=== PATIENT | female | born 1945 | race Caucasian/White ===

== ENCOUNTER 2020-06-10 10:59 | Day surgery (SDC) | payer MEDICARE, SELFPAY ==
[2020-06-10] VITALS (10 sets, daily range): BP systolic 156–180; BP diastolic 58–72; PULSE 61–69; RESP 16; TEMP 36.1–36.6; O2SAT 89–98; BMI 22.9
--- NOTE | 2020-06-10 11:27 | EKG12_ITS ---
Test Reason : PRE OP Blood Pressure : / mmHG Vent. Rate : 062 BPM Atrial Rate : 062 BPM P-R Int : 194 ms QRS Dur : 078 ms QT Int : 398 ms P-R-T Axes : 043 -17 060 degrees QTc Int : 403 ms Normal sinus rhythm Septal infarct , age undetermined Abnormal ECG Confirmed by ASHLEY ACUÑA, NAHUN ([id number]), sports editor DOREEN LINDO ([id number]) on 06/14/2020 2:55:25 PM Referred By: Mela Allen Confirmed By:NAHUN RAMIREZ MD
[2020-06-10] MEDS: Phenazopyridine 95 MG Tablet 190 MG PO (11:59)
[2020-06-10] MEDS: Lactated Ringers 1,000 ML 100 ML IV ×2 (12:19→16:51)
--- NOTE | 2020-06-10 13:00 | HYST_PTH ---
PATIENT: ELIE CUNHA LOC: [facility] [place][id number] AGE/SX: 75/F ROOM: RE06/10/[address]: Dr. Mela Allen MD : 1945 BED: DIS: 06/10/2020 SPEC #: [id number] RECD: 06/11/20 07:11 STATUS: MARCO A RELyn #: [id number] SHARIF: 06/10/20 13:[address]: Mela Allen DEPT: SURGICAL PATHOLOGY RECD BY: Feli Corona ENTERED: 06/11/20 08:45 SP TYPE: HYSTERECT OTHR DR: Dr. Poppy Alatorre MD Tissues: Uterus, NOS Procedures: Surgery Specimen Level V HEADER OPERATION: Vaginal hysterectomy, salpingectomy with USLS, A & P repair PRE-OP DIAGNOSIS: Stress incontinence, complete uterovaginal prolapse TISSUE SUBMITTED: Uterus, bilateral fallopian tubes MICROSCOPIC DIAGNOSIS Uterus, bilateral fallopian tubes and ovary, vaginal hysterectomy, bilateral salpingectomy and oophorectomy: Cervix - chronic inflammation. Endometrium - cystic atrophic endometrium. Endometrial polyp - benign endometrial polyp with cystic atrophic changes. Myometrium - intramural leiomyomas with focal calcification (largest measuring 1 cm in greatest dimension). Bilateral fallopian tubes - no pathologic diagnosis. Ovary - no pathologic diagnosis. SJ:rg 06/16/2020 MICROSCOPIC DESCRIPTION Slides are reviewed. GROSS DESCRIPTION Received in fixative is one container labeled with the patient's name and designated uterus, bilateral fallopian tubes. The specimen consists of a hysterectomy specimen consisting of uterus with cervix and detached bilateral fallopian tubes. The uterus with cervix weighs 53 gm and measures 11.5 x 5 x 3 cm. The serosal surface is culp, glistening. The ectocervical mucosa is unremarkable. The external os is pinpoint in contour. The endocervical canal is markedly elongated and measures up to 6.5 cm in length and 0.1 cm in diameter. The triangular endometrial cavity measures 3.5 cm in length and 2 cm in width. A culp-pink polyp is noted in the posterior uterine wall measuring 2 x 1.5 x 0.5 cm. The myometrial wall underneath the polyp is not indurated. The rest of the endometrium is <0.1 cm in thickness. Sections of the uterine wall reveal multiple nodular masses. The largest mass measures 1 cm in diameter. One of the nodules also show focal area of calcification. The uninvolved uterine wall measures up to 1.2 cm in thickness. The fallopian tubes were received in multiple pieces. One of the pieces consist of portion of fallopian tube measuring 4 cm in length and 0.3 cm in diameter. Obvious fimbrial end is not identified. Also present is a portion of fallopian tube with fimbrial end measuring in aggregate 3 x 2 x 0.5 cm. Also present in the container is a piece of tissue consistent with portion of ovary with adherent fimbrial end of fallopian tube measuring 3 x 1 x 1 cm. Sections reveal unremarkable cut surfaces. All [employer] sections are submitted in 11 cassettes as follows: 1 - anterior cervix, 2 - posterior cervix, 3 & 4 - anterior uterine wall, nodular mass, 5 & 6 - posterior uterine wall and entire endometrial polyp, 7 - nodular mass with calcification submitted after decalcification, 8 & 9 - bilateral fallopian tubes, entire submitted, 10 & 11 - ovary, entire submitted. / FERNY:winnie 06/11/20 TC:1 CPT: 73762, 20397
[2020-06-10] MEDS: Cefazolin 2 GM in 0.9% Normal Saline 100 ML IV (13:57)
[2020-06-10] MEDS: Bupiv/Epi 0.5% Mpf 30 ML Vial (16:06)
--- NOTE | 2020-06-15 14:47 | OP.PCM_ITS ---
Problem List (1) Uterovaginal prolapse, incomplete Status: Resolved (2) Female stress incontinence Status: Resolved Report of Operation Date of Procedure: 06/10/20 Pre-Operative Diagnosis: Uterovaginal prolapse and stress incontinence Post-Operative Diagnosis: Uterovaginal prolapse and stress incontinence Surgery/Procedure Performed:: Total Vaginal hysterectomy, bilateral salpingectomy, uterosacral ligament suspension, anterior and posterior colporrhaphy, midurethral sling and cystoscopy Description of Surgical Findings:: : Bilateral ureteral orifices were noted to be patent with pyridium-stained urine. No bladder, urethral or rectal injury. Type of Anesthesia:: General, Local Specimen's removed: uterus, cervix and bilateral fallopian tubes Estimated Blood Loss (mL): 100 ml Description of Procedure: The patient was taken to the operating room where general anesthesia was initiated. The patient was placed in dorsal lithotomy position and prepped and draped in sterile fashion. A surgical timeout occurred. A Samuel catheter was placed in the patient's bladder. A lone star retractor was used for retraction. Total vaginal hysterectomy: A weighted speculum was placed in the patient's vagina. A curved Brisbane was used to retract the anterior vaginal wall and bladder out of the field. The cervix was grasped with two Eliud traction forceps. The cervix was then injected with 0.25% marcaine mixed with epinephrine. Bovie electrocautery was used to perform a circumferential incision on the vagina mucosa down to the body of the cervix. The posterior vaginal epithelium was then dissected off the cerv ix until the peritoneum of the pouch of Jose was reached. This was then grasped and cut with Martinez scissors entering the peritoneal cavity. A right angle retractor was then placed in the posterior cul-de-sac. Attention was then turned to the anterior vaginal wall epithelium which was grasped with pickups and dissected, along with the bladder, off the cervix and the uterus until the peritoneal reflection was visualized. This was then grasped with pickups and incised with Metzenbaum scissors, entering the peritoneal cavity anteriorly. The Samuel bulb was palpated to confirm that the bladder was not perforated. The Brisbane was then used to retract the bladder out of the operative field. A curved Elo clamp was then used to clamp, cut and suture ligate the uterosacral ligament on the patient's left side. This was repeated on the contralateral side. Next, the vessels of the broad ligament including the uterine vessels were clamped, cut and suture ligated bilaterally. Finally, the utero-ovarian ligament was clamped cut and suture ligated; first with a tie on a passer and then with a Elo stitch. The uterus and cervix were passed off the sterile field and sent to pathology. Bilateral salpingectomy: The fallopian tube on the right side was grasped with a Milwaukee clamp and excised using Bovie electrocautery. This was repeated on the left side. The tubes were passed off the sterile field and sent to pathology. Uterosacral ligament suspension: With two Breisky Navratil retractors placed anteriorly and posteriorly in the vagina, the bowel was packed out of the cul-de-sac using a moist Kerlex sponge. A 0-Maxon with an HGU-46 needle on a long needle local driver was passed through the uterosacral ligament on the patient?s right side. This was followed by a 2-0 prolene suture using an SH needle. This was repeated on the contralateral side. The instruments and packing were removed from the vagina. The patient was given 5 mg of Lasix IV and 5 cc of Indigo Hysham. Cystoscopy was then performed while holding tension on the uterosacral ligament suspensions sutures. Bilateral efflux of blue urine was seen from ureteral orifices. The sutures were then bought through the corners of the vaginal cuff. The cuff was closed with interrupted 0-vicryl sutures. The uterosacral ligament sutures were then tied, elevating the vaginal vault. Anterior Repair: The vaginal epithelium overlying the anterior vaginal wall was grasped with two Allis clamps, injected with 0.5% Marcaine with epinephrine and a midline incision was made over the herniation of the anterior vaginal wall. The underlying pubocervical fascia was dissected off the overlying vaginal epithelium until the herniation of the pubocervical fascia was completely exposed. Hemostasis was achieved with electrosurgical cautery. The herniation was repaired in the traditional fashion using imbricating horizontal mattress sutures of 2-O PDS on a CT-1 needle. Once the herniation was completely repaired, the redundant vaginal epithelium was excised and the incision was closed with a running, locking 3-O Vicryl suture. Excellent hemostasis was noted. Posterior repair: A self-retaining retractor was used to retract the labia and vagina for adequate visualization and exposure. The vaginal epithelium overlying the posterior vaginal wall was grasped with two Allis clamps, injected with 0.5% Marcaine with epinephrine and a midline incision was made over the herniation of the posterior vaginal wall. The underlying rectovaginal fascia was dissected off the overlying vaginal epithelium until the herniation of the rectovaginal fascia was completely exposed. Hemostasis was achieved with electrosurgical cautery. The herniation was repaired in the traditional fashion using imbricating horizontal mattress sutures of 2-O PDS on a CT-1 needle. Once the herniation was completely repaired, the redundant vaginal epithelium was excised and the incision was closed with a running, locking 3-O Vicryl suture. Excellent hemostasis was noted. Midurethral sling: The vaginal epithelium overlying the mid-urethra was grasped with two Allis clamps, injected with 0.5% Marcaine with epinephrine and a 1.5 cm midline incision was made over the mid urethra using a 15 blade scalpel. Tunnels were dissected bilaterally to the pubic rami and the Amena Desara trocar was passed through the tunnels on the right side, through the space of Retzius and out the skin at the pubic symphysis. This was repeated on the patient's left side. Cystoscopy was performed and there was no evidence of bladder or urethral injury. The sling was then drawn up through the space of Retzius and out the skin at the pubic symphysis. Tension was adjusted by placing a Metzenbaum scissor tip between the sling and the urethra. Once adequate tension was adjusted, the plastic sheaths were removed. The redundant sling was trimmed at the skin edges and the skin was repaired with Indermil. The vaginal epithelium was repaired with a running locking 3-0 Vicryl suture. Anesthesia was discontinued. All needle, instrument, and sponge counts were correct x 2. The patient was taken to recovery room in stable condition. Grafts/Implants Used: Amena Desara Sling - Complications None - Admit VTE Documentation VTE Present on Admission: Yes VTE Mechan Device Prophylaxis: SCD's VTE Pharm Prophylaxis ordered?: No Reason prophylaxis not ordered:: Treatment Not Indicated
--- NOTE | 2020-06-15 14:54 | PCM.HP.STD ---
Problem List (1) Uterovaginal prolapse, incomplete Status: Resolved (2) Female stress incontinence Status: Resolved History of Present Illness Date of Admission: 06/10/20 The patient is a 75 year old Female with uterovaginal prolapse and stress incontinence here for surgical repair. [] Past Medical History Medical History: Medical History (Last Reviewed 06/10/20 @ 16:[address] Mela Allen MD) HTN (hypertension) I10 Allergies No Known Allergies Allergy (Verified 03/08/15 13:25) Home Medications: Ambulatory Orders Medication Instructions Recorded Aspirin E.C. [Ecotrin] 81 mg PO DAILY@0800 03/08/15 Multivitamins,Therapeutic 1 tablet PO DAILY 03/08/15 [Multivitamin] Biotin 1 mg PO DAILY 06/03/20 Glucos Sul 2Kcl/MSM/Chond/C/Mn 1 ea PO DAILY 06/03/20 [Glucosamine Chondroitin Cap] Losartan Potassium [Cozaar] 12.5 mg PO BID 06/03/20 Vitamin E 400 unit PO DAILY 06/03/20 Smoking Status: Never smoker Tobacco Use: Non-smoker Review of Systems Constitutional: Denies: Chills, Fever, Weight Change HEENT: Denies: Head Aches, Sinus Congestion, Sinus Drainage Cardiovascular: Denies: Chest Pain, Palpitations Respiratory: Denies: Cough, Shortness of breath at rest, Sputum production Gastrointestinal: Denies: Abdominal Pain, Nausea, Vomiting Genitourinary: Denies: Dysuria Musculoskeletal: Denies: Joint Pain, Joint Tenderness Skin: Denies: Rash, Wounds Neurological: Denies: Numbness, Tingling, Focal weakness Psychiatric: Denies: Anxiety, Depression, Homicidal Ideations, Suicidal Ideations Hematologic/ Lymphatic: Denies: Easy Bruising, Easy Bleeding VTE Information - Inpt Only VTE Present on Admission: Yes VTE Mechan Device Prophylaxis: SCD's VTE Pharm Prophylaxis ordered?: No Reason prophylaxis not ordered:: Treatment Not Indicated - Physical Exam Vitals/I&O's: Vital Signs Temp Pulse Resp BP Pulse Ox 97.1 F L 68 16 171/67 H 92 06/10/20 17:30 06/10/20 17:30 06/10/20 17:30 06/10/20 17:30 06/10/20 17:30 Oxygen Flow Rate (L/min) 2 Oxygen Delivery Method Room Air Weight: 62.6 kg Body Mass Index (BMI) 22.9 General: Alert, Oriented x3, Cooperative HEENT: Atraumatic, PERRLA, EOMI, Normocephalic Neck: Supple, No JVD, Negative Carotid Bruits Lungs: Clear to auscultation, Normal air movement Cardiovascular: Regular rate, No murmurs Abdomen: Bowel Sounds Present, Soft, Non Tender Extremities: No edema, Capillary Refill Less than 3 Seconds Skin: No rashes, No breakdown Musculoskeletal: No Tenderness to Palpation of Joints or Extremities Neurological: Cranial nerves II-XII grossly intact Psych/Mental Status: Normal Affect, Appropriate Assessment/Plan All Active Problems (Last Reviewed 06/10/20 @ 16:[address] Mela Allen MD) Uterovaginal prolapse, incomplete (Resolved) Female stress incontinence (Resolved) Proceed with surgical repair as planned.
== END 2020-06-10 18:45 | disposition home or self-care (01) ==
LOC: SDC 11:01 → AC 11:02
PROVIDERS: PCP Internal Medicine; Referring Provider Obstetrics & Gynecology; Visit Provider Obstetrics & Gynecology
PROC: (CPT 58260; principal; 2020-06-10 12:40)
DX: N81.2 Incomplete uterovaginal prolapse (principal); N39.3 Stress incontinence (female) (male); I10 Essential (primary) hypertension; Z79.82 Long term (current) use of aspirin; N84.0 Polyp of corpus uteri; D25.1 Intramural leiomyoma of uterus
CPT/HCPCS: 57250; 57288; 58262; 88307; 93005; J7120; C1771; J2405

== ENCOUNTER 2020-10-02 22:38 | Emergency (ER) | payer MEDICARE, SELFPAY ==
[2020-06-10 12:01] VITALS: BMI 22.9
[2020-10-02 22:39] VITALS: BP 179/145; PULSE 76; RESP 16; TEMP 36.6; O2SAT 97; BMI 23.1
[2020-10-02 22:47] VITALS: BP 186/87
[2020-10-02 22:52] VITALS: BP 186/87; PULSE 54; RESP 21; O2SAT 96; BMI 23.1
--- NOTE | 2020-10-02 22:52 | RAD_ITS ---
INDICATION: Neuro deficit, acute, stroke suspected EXAMINATION/TECHNIQUE: X-RAY - XR Chest 1 View COMPARISON: None. FINDINGS: The lungs are clear. The cardiomediastinal silhouette is unremarkable. No pleural effusion or pneumothorax. Degenerative changes of the thoracic spine and shoulders. RAD/Chest 1 View IMPRESSION: No acute radiographic abnormalities. Electronically Signed: Cecilio Castro MD at 23:30 EDT Tel , Service support ,
--- NOTE | 2020-10-02 22:52 | EKG12_ITS ---
Test Reason : NEURO Blood Pressure : / mmHG Vent. Rate : 060 BPM Atrial Rate : 060 BPM P-R Int : 204 ms QRS Dur : 092 ms QT Int : 376 ms P-R-T Axes : 028 -04 054 degrees QTc Int : 376 ms Normal sinus rhythm Septal infarct , age undetermined Abnormal ECG Confirmed by SHANNON ACUÑA, DINO ([id number]), sound editor DOREEN LINDO ([id number]) on 10/05/2020 8:57:51 AM Referred By: BB Confirmed By:DINO ORTEGA MD
--- NOTE | 2020-10-02 22:52 | CT_ITS ---
HISTORY: Neuro deficit, acute, stroke suspected - LLE weak EXAMINATION: CT Head Stroke Protocol W/O Contrast Injection TECHNIQUE: Multiple axial images were obtained of the brain without intravenous contrast. A radiation dose optimization technique was used for this scan. IV Contrast dosage and agent: None. COMPARISON: None FINDINGS: BRAIN PARENCHYMA: 1.8 x 1.2 x 1.7 cm ovoid intra-axial hemorrhage within the high parasagittal, prefrontal region of right frontal lobe, with mild rim of surrounding edema. Other smaller punctate foci of high attenuation also present and suspicious for hemorrhage: Located within posterior, superior left cerebellar hemisphere, posterior left temporal lobe, left bond radiata periventricular region, high right occipital lobe, high right frontal lobe. Tiny basal ganglia calcifications also noted. No intracranial mass effect or midline shift. There is hypoattenuation of the deep cerebral white matter. Chronic involutional changes are noted. CSF SPACES: Prominent cerebral sulci secondary to involutional changes. No hydrocephalus. Basal cisterns are patent. Intracranial atherosclerotic calcifications. CALVARIUM, SKULL BASE, PARANASAL SINUSES AND MASTOID AIR CELLS: Intact calvarium. No acute findings with imaged paranasal sinuses. Mastoid air cells are well pneumatized. ORBITS: No acute findings. ASPECTS Score for Acute Strokes: Not applicable. CT/STROKE Brain/Head without Cont IMPRESSION: 1. Dominant, small intra-axial hematoma within the high right frontal lobe with several other scattered punctate intracranial hemorrhagic foci. Differential includes hemorrhagic metastases, posttraumatic cerebral contusions, hypercoagulable state and spontaneous hemorrhages, hypertensive hemorrhages. 2. Mild brain atrophy and chronic small vessel white matter disease. Individualized dose optimization techniques were used for this CT. at 2341 Reported and signed by: Jhoan Valenzuela MD N.B. : The above Results were Read Back by Jhoan Valenzuela MD to Jovanni Carter MD, and understanding confirmed on 10/02/2020 23:39:28 (ET). Electronically Signed: Jhoan Valenzuela MD at 23:40 EDT Tel , Service support ,
[2020-10-02 23:04] LABS: Absolute Lymphocyte Count 2.31 X10^3/uL (0.83-4.51); Absolute Neutrophil Count 2.2 X10^3/uL (2.0-7.7); Basophil# 0.02 X10^3/uL; Basophil% 0.4 % (0-1); Hematocrit 40.2 % (37-47); Hemoglobin 12.8 g/dL (12.0-15.0); Lymphocyte # 2.31 X10^3/ul (0.83-4.51); Lymphocyte % 45.9 % (19-41); Mean Corp Hgb Conc 31.8 g/dL (32-36); Mean Corpuscular Volume 94.1 fL (81-99); Mean Platelet Vol. 10.9 fl (6.2-12.0); NRBC Flagged by Analyzer 0 % (0-5); Neutrophil # 2.19 X10^3/uL (2.7-7.7); Neutrophil % 43.5 % (47-70); Platelet Count 207 K/mm3 (150-450); RBC Distribution Width CV 12.1 % (11.6-14.6); RBC Distribution Width SD 41.6 fl (35.1-43.9); Red Blood Count 4.27 M/mm3 (4.2-5.4)
[2020-10-02 23:07] LABS: Prothrombin Time (Protime)PT. 12.7 SECONDS (11.7-14.9)
[2020-10-02 23:08] LABS: Partial Thromboplast Time 33.2 Seconds (24.1-36.2)
[2020-10-02 23:22] VITALS: BP 134/103; PULSE 52; RESP 19; O2SAT 96
--- NOTE | 2020-10-02 23:27 | ED.RN ---
Verbal orders received to discontinue NIH's due to brain mass being found on CT that is likely causing patients symptoms.
[2020-10-02 23:30] LABS: Anion Gap 5 (5-15); BUN 24 mg/dL (7-18); BUN/Creat Ratio 24.5 RATIO (10-20); Calcium,Total 9.2 mg/dL (8.5-10.1); Chloride 102 mmol/L (98-107); Creatinine, Serum 0.98 mg/dL (0.55-1.02); EST Glomerular Filtration Rate 58 mL/min (>60); Est Glom Filt Rate - Afr Amer 71 mL/min (>60); Estimated Creatinine Clearance 43.26 ml/min; Glucose 89 mg/dL (74-106); Sodium Level 136 mmol/L (136-145); Troponin-I HS 7.2 pg/mL (3.0-53.7)
[2020-10-02 23:39] VITALS: BP 214/94; PULSE 60; RESP 16; O2SAT 97
--- NOTE | 2020-10-02 23:40 | ED.VIS.STROK ---
HPI History of Present Illness Chief Complaint: Neuro S/Sx Informant: patient Onset/Context/Timing Onset: Days (4 or 5) Context: - (unk onset) Timing: Continuous Quality and Location: Positive for Left Leg Weakness Current Severity: Moderate Maximum Severity: Moderate Worsened by: n/a Relieved by: n/a Associated Symptoms Associated Symptoms: Negative for Headache, Nausea, Vomiting and Chest Pain Narrative Narrative: Patient noticed that she has been limping on her left lower extremity for the last several days, and it has been weak and a little tingly/numb. She has no weakness or numbness anywhere else. No headaches, problems speaking or understanding others, no vision changes, no chest pain or shortness of breath or dizziness. She noticed tonight that her blood pressure was very high at home which is what prompted her to come to the ER. She takes no anticoagulation but she is on a baby aspirin daily. She states I am pretty healthy and just take medicine for blood pressure. [facility] Medical History HTN (hypertension) Home Medications aspirin 81 mg PO DAILY@0800 03/08/15 [History Last Taken Unknown] multivitamin with folic acid [Thera] 1 tab PO DAILY 03/08/15 [History Last Taken Unknown] biotin 1 mg PO DAILY 06/03/20 [History Last Taken Unknown] glucos sul [id number] 1 ea PO DAILY 06/03/20 [History Last Taken Unknown] losartan 12.5 mg PO BID 06/03/20 [History Last Taken 06/10/20] vitamin E 400 unit PO DAILY 06/03/20 [History Last Taken Unknown] Allergy/AdvReac Type Severity Reaction Status Date / Time No Known Allergies Allergy Verified 10/02/20 22:47 Family History Other Surgical History (Updated 10/02/20 @ 22:48 by Yanira Fuentes) History of hysterectomy Social History Smoking Status: Never smoker ROS ROS ED Constitutional Constitutional ED: Denies chills or fever(s) Eyes Eyes: Denies change in vision or diplopia ENT ENT ED: Denies rhinorrhea or sore throat Cardiovascular Cardiovascular: Denies chest pain or palpitations Respiratory/Chest Respiratory/Chest: Denies cough or dyspnea Gastrointestinal Gastrointestinal: Denies abdominal pain, diarrhea, nausea or vomiting Genitourinary Genitourinary ED: Denies dysuria or hematuria Musculoskeletal Musculoskeletal: Denies back pain or neck pain Integumentary Denies abscess or rash Neurologic Neurologic: Reports as per HPI, paresthesias and weakness; Denies abnormal speech, behavior changes, confusion, dizziness, headache(s) or loss of vision Psychiatric Psychiatric: Denies anxiety or suicidal thoughts EXAM Physical Exam Const Vital Signs: 10/02/20 22:39 10/02/20 22:47 10/02/20 22:52 Temperature 98 F Temperature Source Oral Pulse Rate 76 54 L Respiratory Rate 16 21 H Blood Pressure 179/145 H 186/87 H 186/87 H Blood Pressure Mean 156 120 120 Pulse Ox 97 96 Oxygen Delivery Method Room Air Room Air 10/02/20 23:22 10/02/20 23:39 10/02/20 23:54 Temperature Temperature Source Pulse Rate 52 L 60 56 L Respiratory Rate 19 H 16 18 Blood Pressure 134/103 H 214/94 H 179/73 H Blood Pressure Mean 113 134 108 Pulse Ox 96 97 96 Oxygen Delivery Method Room Air Room Air Room Air 10/03/20 00:06 10/03/20 00:09 10/03/20 00:15 Temperature Temperature Source Pulse Rate 57 L 66 71 Respiratory Rate 18 17 22 H Blood Pressure 168/67 H 168/67 H 140/63 H Blood Pressure Mean 100 100 88 Pulse Ox 96 96 95 Oxygen Delivery Method Room Air Room Air Room Air 10/03/20 00:30 10/03/20 00:51 10/03/20 01:00 Temperature Temperature Source Pulse Rate 81 83 80 Respiratory Rate 23 H 16 16 Blood Pressure 137/53 H 141/48 H 134/55 H Blood Pressure Mean 81 79 81 Pulse Ox 95 96 96 Oxygen Delivery Method Room Air Room Air Room Air 10/03/20 01:15 10/03/20 01:30 Temperature Temperature Source Pulse Rate 79 76 Respiratory Rate 16 16 Blood Pressure 139/65 H 134/78 H Blood Pressure Mean 89 96 Pulse Ox 96 96 Oxygen Delivery Method Room Air Positive well nourished and well developed General Appearance ED: well developed and NAD HEENT Reports moist mucous membranes normocephalic and atraumatic Eyes PERRL and EOMs intact bilaterally Neck full ROM and supple Resp normal respiratory effort and clear to auscultation bilaterally Cardio regular rate, regular rhythm and no murmurs GI non-tender and non-distended Auscultation: normoactive bowel sounds Palpation: soft Back/Spine no CVA tenderness General Back: other FROM Extremity normal to inspection General Extremety ED: Negative for edema, pulses abnormal or tenderness General Extremity: Negative for edema or pulses abnormal Neuro oriented x3 and CN's II-XII intact bilaterally Neuro Narrative: Weak left lower extremity and decreased sensation otherwise normal neuro exam. Sensorium / Orientation: awake and alert Motor Exam: clonus absent Deep Tendon Reflexes: Rt Patellar (L4): 2+, Lt Patellar (L4): 2+, Rt Ankle (S1): 2+ and Lt Ankle (S1): 2+ Deep Tendon Reflexes Back: Rt Patellar (L4): 2+, Lt Patellar (L4): 2+, Rt Ankle (S1): 2+ and Lt Ankle (S1): 2+ Plantar Reflex: Downgoing: bilateral Skin no rashes or lesions noted and no wounds STROKE Vital Signs/Narrative: Vital Signs Temp Pulse Resp BP Pulse Ox 10/03/20 01:30 76 16 134/78 H 96 10/03/20 01:15 79 16 139/65 H 96 10/03/20 01:00 80 16 134/55 H 96 10/03/20 00:51 83 16 141/48 H 96 10/03/20 00:30 81 23 H 137/53 H 95 10/03/20 00:15 71 22 H 140/63 H 95 10/03/20 00:09 66 17 168/67 H 96 10/03/20 00:06 57 L 18 168/67 H 96 10/02/20 23:54 56 L 18 179/73 H 96 10/02/20 23:39 60 16 214/94 H 97 10/02/20 23:22 52 L 19 H 134/103 H 96 10/02/20 22:52 54 L 21 H 186/87 H 96 10/02/20 22:47 186/87 H 10/02/20 22:39 98 F 76 16 179/145 H 97 NIHSS Initial: 1a Level of Consciousness: 0 1b LOC Questions (Score 2 if aphasic/stupor): 0 1c LOC Commands (Only score 1st attempt): 0 2 Best Gaze (If aphasic, use reflexive mvmts.): 0 3 Visual: 0 4 Facial Palsy: 0 5 Motor Arm Right (UN = amputation/fusion): 0 5 Motor Arm Left: 0 6 Motor Leg Right: 0 6 Motor Leg Left: 2 7 Limb ataxia (Only + if out of proportion): 0 8 Sensory (Aphasia/stupor=0 or 1, coma=2): 1 9 Best Language: 0 10 Dysarthria (mute, coma=2, intubated=UN): 0 11 Extinction and Inattention (only scored if +): 0 Total Score: 3 MDM MDM MDM Narrative Medical decision making narrative: CT shows multifocal hemorrhage, all of which are small and have no mass-effect. Had discussion with radiologist. Differential includes hypertensive in addition to multifocal metastases. Patient has no history of cancer. Given the bleeding she will require transfer to a higher level of care. We discussed options, her primary care is in [facility], she prefers to go and stay within the system but stay close, so we tried [facility]. They have an available neuro ICU bed, I discussed with neurosurgery there, and the patient is excepted by critical care medicine Dr. Moore. Per protocol, patient was treated with labetalol and hydralazine, and we got her pressure down to 134/78. She remained clinically stable, and actually very well-appearing. Lab Data Attestation: I reviewed the patient's lab results. Labs: Laboratory Results - last 24 hr 10/02/20 10/02/20 10/02/20 22:43 22:43 22:43 WBC 5.0 RBC 4.27 Hgb 12.8 Hct 40.2 MCV 94.1 MCH 30.0 MCHC 31.8 L RDW Std Deviation 41.6 RDW Coeff of Fabiola 12.1 Plt Count 207 MPV 10.9 Immature Gran % (Auto) 0.200 Neut % (Auto) 43.5 L Lymph % (Auto) 45.9 H [place] % (Auto) 8.0 Eos % (Auto) 2.0 Baso % (Auto) 0.4 Absolute Neuts (auto) 2.2 Absolute Lymphs (auto) 2.31 Nucleated RBC % 0 PT 12.7 INR 1.0 APTT 33.2 Sodium 136 Potassium 4.0 Chloride 102 Carbon Dioxide 29.0 Anion Gap 5 BUN 24 H Creatinine 0.98 Estim Creat Clear Calc 43.26 Est GFR (MDRD) Af Amer 71 Est GFR (MDRD) Non-Af 58 L BUN/Creatinine Ratio 24.5 H Glucose 89 Calcium 9.2 Troponin I High Sens 7.2 Radiography Diagnostic Testing: Radiology Impression Brain CT 10/02/20 22:52 IMPRESSION: 1. Dominant, small intra-axial hematoma within the high right frontal lobe with several other scattered punctate intracranial hemorrhagic foci. Differential includes hemorrhagic metastases, posttraumatic cerebral contusions, hypercoagulable state and spontaneous hemorrhages, hypertensive hemorrhages. 2. Mild brain atrophy and chronic small vessel white matter disease. Individualized dose optimization techniques were used for this CT. at 2341 Reported and signed by: Jhoan Valenzuela MD N.B. : The above Results were Read Back by Jhoan Valenzuela MD to Jovanni Carter MD, and understanding confirmed on 10/02/2020 23:39:28 (ET). Electronically Signed: Jhoan Valenzuela MD at 23:40 EDT Tel , Service support , ADDENDUM: 10/02/20 2348 IMPRESSION: 1. Dominant, small intra-axial hematoma within the high right frontal lobe with several other scattered punctate intracranial hemorrhagic foci. Differential includes hemorrhagic metastases, posttraumatic cerebral contusions, hypercoagulable state and spontaneous hemorrhages, hypertensive hemorrhages. 2. Mild brain atrophy and chronic small vessel white matter disease. Individualized dose optimization techniques were used for this CT. at 2341 Reported and signed by: Jhoan Valenzuela MD N.B. : The above Results were Read Back by Jhoan Valenzuela MD to Jovanni Carter MD, and understanding confirmed on 10/02/2020 23:39:28 (ET). Electronically Signed: Jhoan Valenzuela MD at 23:40 EDT Tel , Service support , Chest X-Ray 10/02/20 22:52 IMPRESSION: No acute radiographic abnormalities. Electronically Signed: Cecilio Castro MD at 23:30 EDT Tel , Service support , EKG Initial EKG: Attestation: I personally reviewed and interpreted this EKG as follows: Interpretation: Sinus Rhythm and No Acute Injury Pattern Comments: Normal EKG except for V1-two Q waves without any ST segment deviations. Prior EKG tracings: available for review Prior: Unchanged Stroke Documentation Questions Stroke Team Activated: No (outside of 24 hrs) Critical Care Time Critical Care Time: Yes Critical care time (excluding procedures): 30-74 minutes (32 minutes), Including time spent:, Discussing w/Patient &/or Family/Dental Patient Coordinator, Discussing w/Consultants, Arranging Admission or Transfer and Performing Direct Patient Care at Bedside Discharge Plan Triage Chief Complaint: Neuro S/Sx ED Provider: Jovanni Carter Dx/Rx/DC Orders Clinical Impression: Acute cerebral hemorrhage Prescriptions: No Action aspirin 81 MG tablet 81 mg PO DAILY@0800 RF: 0 multivitamin with folic acid [Thera] 1 TABLET tablet 1 tab PO DAILY RF: 0 losartan 25 MG tablet 12.5 mg PO BID RF: 0 vitamin E 400 UNIT capsule 400 unit PO DAILY RF: 0 biotin 1 MG tablet 1 mg PO DAILY RF: 0 glucos sul [id number] 1 EACH capsule 1 ea PO DAILY RF: 0 Primary Care Provider: Poppy Alatorre Referrals: Poppy Alatorre MD [Primary Care Provider] - Disposition Disposition: Acute Care Hospital Discharge Location: [facility]
[2020-10-02] MEDS: Labetalol 100 MG/20 ML Vial 20 MG IV (23:46)
[2020-10-02] MEDS: 0.9% Normal Saline 1,000 ML 100 ML IV (23:51)
[2020-10-02 23:54] VITALS: BP 179/73; PULSE 56; RESP 18; O2SAT 96
[2020-10-02] MEDS: hydrALAZINE 20 MG/ML Vial IV (23:56)
[2020-10-03] VITALS (16 sets, daily range): BP systolic 134–168; BP diastolic 48–78; PULSE 57–83; RESP 16–23; O2SAT 95–96
[2020-10-03] MEDS: hydrALAZINE 20 MG/ML Vial IV (00:08)
--- NOTE | 2020-10-03 04:10 | NURSING ---
ACCEPTED TO [facility] GOING TO ROOM 320
== END 2020-10-03 03:52 | disposition short-term general hospital (02) ==
PROVIDERS: Emergency Provider Emergency Medicine; PCP Internal Medicine
DX: I61.9 Nontraumatic intracerebral hemorrhage, unspecified (principal); R90.82 White matter disease, unspecified; I10 Essential (primary) hypertension; F80.2 Mixed receptive-expressive language disorder; Z79.82 Long term (current) use of aspirin
CPT/HCPCS: 70450; 71045; 80048; 84484; 85025; 85610; 85730; 87426; 93005; 96361; 96374; 99283; J7030; A4216

== ENCOUNTER → 2020-10-08 16:03 | Outpatient (CLI) | payer MEDICARE, SELFPAY ==
[2020-10-08 15:11] VITALS: BMI 22.6
[2020-10-08 16:57] LABS: Absolute Lymphocyte Count 1.53 X10^3/uL (0.83-4.51); Absolute Neutrophil Count 2.4 X10^3/uL (2.0-7.7); Basophil# 0.04 X10^3/uL; Basophil% 0.9 % (0-1); Eosinophil# 0.13 X10^3/uL; Eosinophils% 2.9 % (0-5); Hematocrit 40.9 % (37-47); Lymphocyte # 1.53 X10^3/ul (0.83-4.51); Lymphocyte % 34.2 % (19-41); Mean Corp Hgb Conc 31.8 g/dL (32-36); Mean Corpuscular Volume 94.2 fL (81-99); Mean Platelet Vol. 10.7 fl (6.2-12.0); Monocyte# 0.34 X10^3/uL; Monocyte% 7.6 % (0-10); NRBC Flagged by Analyzer 0 % (0-5); Neutrophil # 2.42 X10^3/uL (2.7-7.7); Neutrophil % 54.2 % (47-70); Platelet Count 228 K/mm3 (150-450); RBC Distribution Width CV 11.9 % (11.6-14.6); RBC Distribution Width SD 41.4 fl (35.1-43.9); Red Blood Count 4.34 M/mm3 (4.2-5.4); White Blood Count 4.5 K/mm3 (4.4-11.0)
[2020-10-08 18:03] LABS: AST(SGOT) 18 U/L (15-37); Alanine Aminotransfer ALT/SGPT 21 U/L (13-56); Albumin, Serum 3.7 g/dL (3.2-5.0); Alkaline Phosphatase 103 U/L (45-117); Anion Gap 6 (5-15); BUN 18 mg/dL (7-18); BUN/Creat Ratio 21.6 RATIO (10-20); Calcium,Total 9.2 mg/dL (8.5-10.1); Chloride 103 mmol/L (98-107); Cholesterol 204 mg/dL (200); Creatinine, Serum 0.83 mg/dL (0.55-1.02); EST Glomerular Filtration Rate 70 mL/min (>60); Est Glom Filt Rate - Afr Amer 85 mL/min (>60); Globulin 3.8 g/dL (2.2-4.2); Glucose 132 mg/dL (74-106); High Density Lipoprotein 47 mg/dL; Potassium 4.1 mmol/L (3.5-5.1); Protein, Total 7.5 g/dL (6.4-8.2); Sodium Level 139 mmol/L (136-145); Triglycerides 192 mg/dL; Very Low Density Lipoprotein 38 mg/dL (5-40)
== END ==
PROVIDERS: PCP Internal Medicine; Referring Provider Physician Assistant; Visit Provider Physician Assistant
DX: I10 Essential (primary) hypertension (principal); I61.9 Nontraumatic intracerebral hemorrhage, unspecified; N39.3 Stress incontinence (female) (male)
CPT/HCPCS: 36415; 80053; 80061; 85025

== ENCOUNTER 2020-10-15 13:17 | Emergency (ER) | payer MEDICARE, SELFPAY ==
[2020-10-08 15:11] VITALS: BMI 22.6
[2020-10-15 13:18] VITALS: BP 194/79; PULSE 75; RESP 18; TEMP 36.6; O2SAT 97; BMI 22.6
--- NOTE | 2020-10-15 13:28 | EKG12_ITS ---
Test Reason : HIGHBP Blood Pressure : / mmHG Vent. Rate : 071 BPM Atrial Rate : 071 BPM P-R Int : 168 ms QRS Dur : 086 ms QT Int : 366 ms P-R-T Axes : 061 002 057 degrees QTc Int : 397 ms Normal sinus rhythm Normal ECG Confirmed by SHANNON ACUÑA, DINO ([id number]), movie editor DOREEN LINDO ([id number]) on 10/18/2020 1:13:33 PM Referred By: Enma Puga Confirmed By:DINO ORTEGA MD
[2020-10-15 13:53] VITALS: BP 183/72; PULSE 64; RESP 14; O2SAT 96
--- NOTE | 2020-10-15 14:17 | EDS_ITS ---
HPI History of Present Illness Chief Complaint: Hypertension Informant: patient and family Onset/Context/Timing Onset: Today (Had an elevated blood pressure reading at [facility] and was referred to the emergency department) Context: - (Unknown since she is asymptomatic) Timing: - (Unknown since she is asymptomatic) Quality: Blood pressure 208/80 and second reading was 212/80 Location: Patient is asymptomatic Location: Patient is asymptomatic Worsened by: Asymptomatic not applicable Relieved by: Asymptomatic not applicable Associated Symptoms Associated Symptoms: None Narrative Narrative: Patient is a 75-year-old woman who was seen on October 08 and diagnosed with a hemorrhagic stroke. She was transferred to outside facility. Goal at time of discharge was systolic pressure of 150. Apparently she took an extra dose of her losartan. She is presently on 25 mg of losartan. She was placed on anticonvulsant as prophylactic treatment. She did developed erythema multiforme minor. She was treated with steroids. She is also on a cholesterol med, which I was told is prophylactic since her cholesterol is normal. She denies headache, visual, ocular auditory symptoms. Last evening she reports buzzing in her ears while watching TV. Presently she denies any ringing in her ears. She denies trouble speech or swallowing. Denies cardiac, respiratory, GI or symptoms. She has weakness left lower extremity. Apparently yesterday she may have had some numbness in her left lower extremity. The weakness is not gotten worse and the numbness has resolved. Prior similar symptoms: No Recent Illness/Hospitalization: Yes (Hemorrhagic stroke diagnosed October 08) Tetanus Immunization: 5-10 years [facility] Medical History (Updated 10/15/20 @ 15:02 by Rico Cline) HTN (hypertension) Intracranial hemorrhage Home Medications multivitamin with folic acid [Thera] 1 tab PO DAILY 03/08/15 [History Last Taken Unknown] melatonin 3 mg tablet 3 mg PO QHS PRN #30 tab 10/08/20 [Rx Last Taken Unknown] losartan 25 mg PO BID 10/15/20 [History Last Taken Unknown] Allergy/AdvReac Type Severity Reaction Status Date / Time levetiracetam [From [facility]] Allergy Rash Verified 10/15/20 15:07 atorvastatin AdvReac PT UNSURE Verified 10/15/20 15:07 OF REACTION Family History Other Surgical History History of hysterectomy Social History (Updated 10/15/20 @ 14:[address] Kristopher Payne MD) household members: none Smoking Status: Never smoker alcohol intake: current alcohol intake frequency: holidays/special occasions only substance use type: does not use ROS ROS ED Constitutional Constitutional ED: Reports systems reviewed and no addt'l complaints, except as documented and as per HPI; Denies chills, fatigue or night sweats Eyes Eyes: Denies acute decrease in peripheral vision, blindness, blind spots, change in vision, loss of central vision, photophobia or seeing flashes ENT ENT ED: Reports tinnitus; Denies dysphagia, ear discharge, ear pain, epistaxis, loss taste/smell, odynophagia, otalgia, post nasal drip, rhinorrhea or throat swelling Cardiovascular Cardiovascular: Denies abdominal edema, chest pain, edema, leg edema, paroxysmal nocturnal dyspnea, pounding heartbeat or syncope Respiratory/Chest Respiratory/Chest: Denies chest congestion, chest tightness, dyspnea on exe rtion, inability to speak, paroxysmal nocturnal dyspnea or shortness of breath at rest Gastrointestinal Gastrointestinal: Denies change in bowel habits, dyspepsia, dysphagia or hematochezia Genitourinary Genitourinary ED: Denies burning urination, decreased urination, hematuria or low back pain Musculoskeletal Musculoskeletal: Denies arthralgias, back pain, extremity pain or muscle weakness Integumentary Denies dry skin or wounds Neurologic Neurologic: Reports as per HPI and paresthesias; Denies focal weakness, frequent falls, lack of coordination or radicular pain Psychiatric Psychiatric: Denies change in appetite or depression Endocrine Endocrinology: Denies cold intolerance, fatigue or heat intolerance Hematologic/Lymphatic Hematologic/Lymphatic: Denies easy bruising Allergic/Immunologic Allergic/Immunologic ED: Denies rhinitis, throat swelling or tongue swelling EXAM Physical Exam Const Vital Signs: 10/15/20 13:18 10/15/20 13:53 10/15/20 15:01 Temperature 98 F Temperature Source Temporal Pulse Rate 75 64 Respiratory Rate 18 14 18 Respiratory Effort Respiratory Pattern Blood Pressure 194/79 H 183/72 H Blood Pressure Mean 117 109 Pulse Ox 97 96 Oxygen Delivery Method Room Air Room Air 10/15/20 15:08 10/15/20 16:34 Temperature Temperature Source Pulse Rate Respiratory Rate Respiratory Effort Normal Respiratory Pattern Normal Blood Pressure 154/69 H Blood Pressure Mean 97 Pulse Ox Oxygen Delivery Method Positive well nourished and well developed General Appearance ED: active, cooperative, comfortable, well developed and NAD Orientation / Consciousness: awake, oriented to person, oriented to place and oriented to time Exam Limitations: no limitations HEENT Reports normocephalic, head/scalp atraumatic, hearing grossly normal bilaterally , external ears normal, EAC's normal, TM's clear, TM's normal bilaterally, nasal mucous membranes and turbinates normal, oropharynx normal and gingiva normal normocephalic, normal to inspection and atraumatic Face and Sinus: normal facial exam and face symmetric Nose: external nose normal, nares normal and no nasal discharge Tympanic Membrane ED: Yes TM's clear, TM normal on the right and TM normal on the left Tympanic Membrane: TM normal on the right and TM normal on the left Mouth ED: Yes oral and palatal mucosa normal, Yes lips normal, Yes tongue normal and Yes moist mucous membranes normal Mouth: oral and palatal mucosa normal, lips normal and tongue normal Eyes PERRL and EOMs intact bilaterally Eyes Narrative: There is no nystagmus. Patient's had cataract surgery. Visual Field: other Other Details: There there is no visual field cuts Eyelid: eyelids normal Cornea: cornea normal Neck full ROM, no lymphadenopathy, supple and no JVD General: trachea midline Lymph Lymphatic: no lymphadenopathy noted Resp normal respiratory effort and normal air movement Effort and Inspection: able to speak in complete sentences Auscultation: clear to auscultation bilaterally Cardio regular rate, regular rhythm, S1 normal heart sound, S2 normal heart sound and no murmurs Palpation: normal PMI Rate: regular rate Peripheral Pulses: pulses 2+ throughout GI Inspection: Negative for abdominal aortic bruit Auscultation: normoactive bowel sounds Palpation: soft Percussion: normal to percussion Back/Spine no CVA tenderness, normal ROM and normal to inspection Extremity normal to inspection, full ROM, normal capillary refill, no joint enlargement and no clubbing, cyanosis or edema Neuro oriented x3, CN's II-XII intact bilaterally, moves all extremities, no focal motor deficits, no sensory deficits noted and deep tendon reflexes 2+ bilaterally Sensorium / Orientation: awake, alert, oriented to person, oriented to place, oriented to time and orientation impaired Meningeal Signs: no meningeal signs Cranial Nerves: CN normal except as noted Speech: speech normal Motor Exam: strength 5/5 throughout and muscle tone normal throughout Deep Tendon Reflexes: Rt Triceps (C7): 2+, Lt Triceps (C7): 2+, Rt Biceps (C5, C6): 2+, Lt Biceps (C5, C6): 2+, Rt Brachioradialis (C6): 2+, Lt Brachioradialis (C6): 2+, Rt Patellar (L4): 2+, Lt Patellar (L4): 2+, Rt Ankle (S1): 2+ and Lt Ankle (S1): 2+ Deep Tendon Reflexes Back: Rt Patellar (L4): 2+, Lt Patellar (L4): 2+, Rt Ankle (S1): 2+ and Lt Ankle (S1): 2+ Plantar Reflex: Downgoing: right and Equivocal: left Coordination: [id number] test normal Psych mental status grossly normal, thought process normal, cooperative, affect normal and speech normal Appearance: grossly normal Skin Skin Narrative: Patient has a new rash which is resolving, erythema multiforme or minor due to anticonvulsant medication Hair: normal Nails: normal MDM MDM MDM Narrative Medical decision making narrative: Since patient is asymptomatic has no new neurologic findings and blood pressure remains elevated with multiple measurements we will treat with clonidine. Beta-blockers not used since heart rate is 60. Blood work was obtained to assess for evidence of endorgan injury since onset is unknown. Patient responded to the clonidine. Plan is discharged with prescription for clonidine. Lab Data Attestation: I reviewed the patient's lab results. Lab results narrative: Blood work is unchanged from prior. Labs: Laboratory Results - last 24 hr 10/15/20 10/15/20 14:04 14:04 WBC 6.5 RBC 4.30 Hgb 12.7 Hct 40.1 MCV 93.3 MCH 29.5 MCHC 31.7 L RDW Std Deviation 42.5 RDW Coeff of Fabiola 12.5 Plt Count 217 MPV 10.8 Sodium 137 Potassium 3.7 Chloride 102 Carbon Dioxide 33.0 H Anion Gap 2 L BUN 13 Creatinine 0.84 Estim Creat Clear Calc 50.47 Est GFR (MDRD) Af Amer 84 Est GFR (MDRD) Non-Af 70 BUN/Creatinine Ratio 15.4 Glucose 92 Calcium 9.0 Discharge Plan Triage Chief Complaint: Hypertension ED Provider: Kristopher Payne Dx/Rx/DC Orders Prescriptions: No Action melatonin 3 mg tablet 3 mg PO QHS PRN (Reason: sleep) Qty: 30 RF: 1 multivitamin with folic acid [Thera] 1 TABLET tablet 1 tab PO DAILY RF: 0 losartan 25 mg tablet 25 mg PO BID RF: 0 Primary Care Provider: Samuel Moreland
[2020-10-15 14:20] LABS: Hematocrit 40.1 % (37-47); Hemoglobin 12.7 g/dL (12.0-15.0); Mean Corp Hgb Conc 31.7 g/dL (32-36); Mean Corpuscular Hgb 29.5 pg (27.0-32.0); Mean Corpuscular Volume 93.3 fL (81-99); Mean Platelet Vol. 10.8 fl (6.2-12.0); Platelet Count 217 K/mm3 (150-450); RBC Distribution Width CV 12.5 % (11.6-14.6); RBC Distribution Width SD 42.5 fl (35.1-43.9); White Blood Count 6.5 K/mm3 (4.4-11.0)
[2020-10-15 14:28] LABS: Anion Gap 2 (5-15); BUN 13 mg/dL (7-18); BUN/Creat Ratio 15.4 RATIO (10-20); Chloride 102 mmol/L (98-107); Creatinine, Serum 0.84 mg/dL (0.55-1.02); EST Glomerular Filtration Rate 70 mL/min (>60); Est Glom Filt Rate - Afr Amer 84 mL/min (>60); Estimated Creatinine Clearance 50.47 ml/min; Glucose 92 mg/dL (74-106); Potassium 3.7 mmol/L (3.5-5.1); Sodium Level 137 mmol/L (136-145)
[2020-10-15] MEDS: cloNIDine HCl 0.2 MG Tablet PO (15:00)
[2020-10-15 15:01] VITALS: RESP 18
[2020-10-15 16:34] VITALS: BP 154/69
[2020-10-15 17:54] VITALS: BP 112/73; PULSE 61; RESP 16; O2SAT 95
== END 2020-10-15 17:55 | disposition home or self-care (01) ==
PROVIDERS: Emergency Provider Emergency Medicine; PCP Internal Medicine
DX: I10 Essential (primary) hypertension (principal); Z79.899 Other long term (current) drug therapy
CPT/HCPCS: 80048; 85027; 93005; 99285

== ENCOUNTER 2020-11-06 02:18 | Emergency (ER) | payer MEDICARE, SELFPAY ==
[2020-11-04 12:51] VITALS: BMI 23.5
[2020-11-06 02:19] VITALS: BP 233/82; PULSE 83; RESP 16; TEMP 35.7; O2SAT 99; BMI 23.8
--- NOTE | 2020-11-06 03:28 | CT_ITS ---
We are attempting to reach an attending provider to discuss findings. An addendum with communication details will be sent when the communication is complete. STUDY: CT BRAIN WITHOUT CONTRAST REASON FOR EXAM: Female, 75 years old. Stroke RADIATION DOSAGE (If Supplied By Facility): CTDIvol = ( 44.99 ) mGy, DLP = ( 812.98 ) mGycm TECHNIQUE: Transaxial CT imaging of the brain was performed without administration of intravenous contrast material. Individualized dose optimization techniques were used for this CT. COMPARISON: October 02, 2020 CT scan head FINDINGS: Normal soft tissue structures. Normal calvarium. There is mild cerebral atrophy with widening of the extra-axial spaces and ventricular dilatation. There are areas of decreased attenuation within the white matter tracts of the supratentorial brain, consistent with microvascular disease changes. There are small punctate calcifications of the basal ganglia which are seen in the aging brain as a normal variant. Normal brainstem. There is mild cerebellar atrophy. There is a chronic-appearing hyperdensity calcification within the periphery of the temporal parietal lobe stable since the prior study. This may be associated prior injury infection potential prior history of vascular malformation. The left frontal punctate hyperdensity is no longer visualized. The focal rounded hemorrhage that was seen on the prior study October 02, 2020 now demonstrates a small focus of low attenuation with a minimal amount of residual hyperdensity. There is a small focus of hemorrhage within the posterior aspect of the left parietal lobe that is new since the prior study suggesting a new small hemorrhage without significant edema. There are no findings of an acute ischemic infarction. Normal visualized paranasal sinuses. CT/Brain/Head without Contrast IMPRESSION: Small focus of evolving hemorrhage within the right hemisphere ovoid in shape but there is trace focus of petechial hemorrhage remaining. Newly visualized hyperdensity within the left posterior parietal lobe. This also accompanies a small focal hyperdensity within the left parietotemporal temporal lobe junction. Pattern of evolving right frontal hemorrhage when compared to prior study October 02, 2020 with residual petechial hemorrhage, resolved left frontal punctate hemorrhage, now with new left posterior parietal hemorrhage persisting calcification or hemorrhage in the left temporoparietal region. This raises concern for the possibility of ongoing multifocal hemorrhagic phenomenon which could include small hemorrhagic masses possible vascular malformations or potentially amyloid or hemorrhagic emboli. Electronically Signed: Lesly Gunter MD at 4:47 EDT Tel , Service support ,
--- NOTE | 2020-11-06 03:28 | EKG12_ITS ---
Test Reason : HYPERTENSION Blood Pressure : / mmHG Vent. Rate : 053 BPM Atrial Rate : 053 BPM P-R Int : 236 ms QRS Dur : 086 ms QT Int : 410 ms P-R-T Axes : 059 -11 053 degrees QTc Int : 384 ms Sinus bradycardia with 1st degree A-V block Cannot rule out Inferior infarct , age undetermined Septal HI, age undetermined Abnormal ECG Confirmed by ASHLEY ACUÑA, NAHUN ([id number]), online editor DOREEN LINDO ([id number]) on 11/11/2020 1:03:39 PM Referred By: NICOLA Confirmed By:NAHUN RAMIREZ MD
[2020-11-06 03:35] LABS: Absolute Lymphocyte Count 1.42 X10^3/uL (0.83-4.51); Absolute Neutrophil Count 1.4 X10^3/uL (2.0-7.7); Basophil# 0.02 X10^3/uL; Basophil% 0.6 % (0-1); Eosinophil# 0.09 X10^3/uL; Eosinophils% 2.7 % (0-5); Hematocrit 39.2 % (37-47); Hemoglobin 12.4 g/dL (12.0-15.0); Lymphocyte # 1.42 X10^3/ul (0.83-4.51); Lymphocyte % 42.3 % (19-41); Mean Corp Hgb Conc 31.6 g/dL (32-36); Mean Corpuscular Hgb 29.9 pg (27.0-32.0); Mean Corpuscular Volume 94.5 fL (81-99); Mean Platelet Vol. 11.3 fl (6.2-12.0); Monocyte# 0.39 X10^3/uL; Monocyte% 11.6 % (0-10); NRBC Flagged by Analyzer 0 % (0-5); Neutrophil # 1.44 X10^3/uL (2.7-7.7); Neutrophil % 42.8 % (47-70); Platelet Count 176 K/mm3 (150-450); RBC Distribution Width CV 13.2 % (11.6-14.6); RBC Distribution Width SD 46.2 fl (35.1-43.9); Red Blood Count 4.15 M/mm3 (4.2-5.4); White Blood Count 3.4 K/mm3 (4.4-11.0)
[2020-11-06 03:59] LABS: AST(SGOT) 30 U/L (15-37); Alanine Aminotransfer ALT/SGPT 24 U/L (13-56); Albumin, Serum 3.6 g/dL (3.2-5.0); Alkaline Phosphatase 96 U/L (45-117); Anion Gap 5 (5-15); BUN 11 mg/dL (7-18); BUN/Creat Ratio 14.3 RATIO (10-20); Calcium,Total 8.3 mg/dL (8.5-10.1); Chloride 100 mmol/L (98-107); Creatinine, Serum 0.77 mg/dL (0.55-1.02); EST Glomerular Filtration Rate 77 mL/min (>60); Est Glom Filt Rate - Afr Amer 94 mL/min (>60); Estimated Creatinine Clearance 42.39 ml/min; Globulin 3.6 g/dL (2.2-4.2); Glucose 92 mg/dL (74-106); Potassium 4.5 mmol/L (3.5-5.1); Protein, Total 7.2 g/dL (6.4-8.2); Sodium Level 133 mmol/L (136-145); Troponin-I HS 6.6 pg/mL (3.0-53.7)
--- NOTE | 2020-11-06 04:36 | EDS_ITS ---
HPI History of Present Illness Chief Complaint: Hypertension Informant: patient Onset/Context/Timing Onset: Today Context: Gradual Onset Timing: Continuous Worsened by: Nothing Relieved by: Blood pressure medication Narrative Narrative: Patient presents with elevated blood pressure that began tonight. Patient checked her blood pressure at home and it was over 200 systolic. Patient states she took one of her blood pressure medications at home which did not help initially. Patient states she took a second 1 and when she got here her blood pressure starting to improve. Patient states that she has had an intraparenchymal bleed from elevated blood pressure in the past. Patient is concerned about this. [facility] Medical History HTN (hypertension) Intracranial hemorrhage Home Medications multivitamin with folic acid [Thera] 1 tab PO DAILY 03/08/15 [History Last Taken Unknown] melatonin 3 mg tablet 3 mg PO QHS PRN #30 tab 10/08/20 [Rx Last Taken Unknown] losartan 25 mg PO BID 10/15/20 [History Last Taken Unknown] biotin 1 mg capsule 1 mg PO DAILY 11/02/20 [History Last Taken Unknown] clonidine 0.2 mg/24 hr weekly transdermal patch 1 patch TRANSDERMAL QWEEK #4 ea 11/04/20 [Rx Last Taken Unknown] Allergy/AdvReac Type Severity Reaction Status Date / Time levetiracetam [From [facility]] Allergy Rash Verified 11/06/20 02:21 atorvastatin AdvReac PT UNSURE Verified 11/06/20 02:21 OF REACTION Family History Other Surgical History History of hysterectomy Social History household members: none Smoking Status: Never smoker Electronic Cigarette Use: not used second hand exposure: No alcohol intake: never substance use type: does not use ROS ROS ED Constitutional Constitutional ED: Denies chills or fever(s) Eyes Eyes: Denies blurry vision or change in vision ENT ENT ED: Denies rhinorrhea or sore throat Cardiovascular Cardiovascular: Denies chest pain or palpitations Respiratory/Chest Respiratory/Chest: Denies cough or dyspnea Gastrointestinal Gastrointestinal: Denies nausea or vomiting Genitourinary Genitourinary ED: Denies dysuria or hematuria Musculoskeletal Musculoskeletal: Denies back pain or neck pain Integumentary Denies abscess or rash Neurologic Neurologic: Denies headache(s) or weakness Allergic/Immunologic Allergic/Immunologic ED: Denies mouth swelling or urticaria EXAM Physical Exam Const Vital Signs: 11/06/20 02:19 11/06/20 02:22 11/06/20 06:28 Temperature 96.2 F L Temperature Source Temporal Pulse Rate 83 60 Respiratory Rate 16 14 Respiratory Effort Normal Non-Labored Respiratory Pattern Normal Blood Pressure 233/82 H Blood Pressure Mean 132 Pulse Ox 99 96 Oxygen Delivery Method Room Air Room Air 11/06/20 06:56 Temperature Temperature Source Pulse Rate 61 Respiratory Rate 14 Respiratory Effort Respiratory Pattern Blood Pressure 200/88 H Blood Pressure Mean 125 Pulse Ox 96 Oxygen Delivery Method Room Air Positive well nourished and well developed General Appearance ED: well developed HEENT Reports moist mucous membranes Neck supple and no JVD Resp normal respiratory effort and clear to auscultation bilaterally Cardio regular rate, regular rhythm and no murmurs GI normal to inspection, nondistended, normoactive bowel sounds and non-tender Palpation: soft Extremity normal to inspection General Extremety ED: Negative for edema or tenderness General Extremity: Negative for edema Neuro oriented x3, CN's II-XII intact bilaterally and no sensory deficits noted Sensorium / Orientation: alert Motor Exam: strength 5/5 throughout Psych mental status grossly normal Skin no rashes or lesions noted MDM MDM MDM Narrative Medical decision making narrative: Patient took her blood pressure medicine prior to arrival. On my initial evaluation, patient's blood pressure was 177/90. This improved during her emergency department stay to 166/80. EKG was obtained. On my interpretation, it showed a sinus bradycardia with a first- degree AV block with a rate of 53. There are no acute ST or T wave changes. QRS interval and QTc intervals were normal. [place] was normal. CBC and comprehensive metabolic profile were obtained and were within normal limits. CT scan of the brain was obtained. There is a small focus of resolving hemorrhage within the right hemisphere and there is trace focus of petechial hemorrhage remaining. There is a new hypodensity in the left posterior parietal lobe. There is a small focal hyperdensity within the left parietotemporal lobe junction. This was interpreted by the radiologist and reviewed by myself. Patient was advised of her findings. Patient did want want to be transferred initially but is agreeable to that. Patient was seen at [facility] recently for prior intraparenchymal hemorrhage. Case was discussed with the transfer line. They will try to make arrangements for transfer. After discussing this with the patient, her blood pressure increased to 200/88. Patient was given a dose of clonidine as well as her morning losartan tablet. Patient was accepted to the service of Dr. Andrew. Patient understood and was agreeable with the plan. All questions were answered. Lab Data Attestation: I reviewed the patient's lab results. Labs: Laboratory Results - last 24 hr 11/06/20 11/06/20 02:33 02:33 WBC 3.4 L RBC 4.15 L Hgb 12.4 Hct 39.2 MCV 94.5 MCH 29.9 MCHC 31.6 L RDW Std Deviation 46.2 H RDW Coeff of Fabiola 13.2 Plt Count 176 MPV 11.3 Immature Gran % (Auto) 0.000 Neut % (Auto) 42.8 L Lymph % (Auto) 42.3 H [place] % (Auto) 11.6 H Eos % (Auto) 2.7 Baso % (Auto) 0.6 Absolute Neuts (auto) 1.4 L Absolute Lymphs (auto) 1.42 Nucleated RBC % 0 Sodium 133 L Potassium 4.5 Chloride 100 Carbon Dioxide 28.0 Anion Gap 5 BUN 11 Creatinine 0.77 Estim Creat Clear Calc 42.39 Est GFR (MDRD) Af Amer 94 Est GFR (MDRD) Non-Af 77 BUN/Creatinine Ratio 14.3 Glucose 92 Calcium 8.3 L Total Bilirubin 0.40 AST 30 ALT 24 Alkaline Phosphatase 96 Troponin I High Sens 6.6 Total Protein 7.2 Albumin 3.6 Globulin 3.6 Albumin/Globulin Ratio 1.0 Radiography Diagnostic Testing: Radiology Impression Brain CT 11/06/20 03:28 IMPRESSION: Small focus of evolving hemorrhage within the right hemisphere ovoid in shape but there is trace focus of petechial hemorrhage remaining. Newly visualized hyperdensity within the left posterior parietal lobe. This also accompanies a small focal hyperdensity within the left parietotemporal temporal lobe junction. Pattern of evolving right frontal hemorrhage when compared to prior study October 02, 2020 with residual petechial hemorrhage, resolved left frontal punctate hemorrhage, now with new left posterior parietal hemorrhage persisting calcification or hemorrhage in the left temporoparietal region. This raises concern for the possibility of ongoing multifocal hemorrhagic phenomenon which could include small hemorrhagic masses possible vascular malformations or potentially amyloid or hemorrhagic emboli. Electronically Signed: Lesly Gunter MD at 4:47 EDT Tel , Service support , ADDENDUM: 11/06/20 0520 IMPRESSION: Small focus of evolving hemorrhage within the right hemisphere ovoid in shape but there is trace focus of petechial hemorrhage remaining. Newly visualized hyperdensity within the left posterior parietal lobe. This also accompanies a small focal hyperdensity within the left parietotemporal temporal lobe junction. Pattern of evolving right frontal hemorrhage when compared to prior study October 02, 2020 with residual petechial hemorrhage, resolved left frontal punctate hemorrhage, now with new left posterior parietal hemorrhage persisting calcification or hemorrhage in the left temporoparietal region. This raises concern for the possibility of ongoing multifocal hemorrhagic phenomenon which could include small hemorrhagic masses possible vascular malformations or potentially amyloid or hemorrhagic emboli. N.B. : The above Results were Read Back by Lesly Gunter MD to Yair Bowers DO, and understanding confirmed on 11/06/2020 05:13:53 (ET). Electronically Signed: Lesly Gunter MD at 4:47 EDT Tel , Service support , EKG Initial EKG: Attestation: I personally reviewed and interpreted this EKG as follows: Interpretation: No Acute Injury Pattern and Sinus Bradycardia (With first- degree AV block with a rate of 53) Prior EKG tracings: available for review Prior: Changed (Compared to previous EKG dated 10/15/2020, the first-degree AV block is new, otherwise there are no acute changes.) Discharge Plan Triage Chief Complaint: Hypertension ED Provider: Yair Bowers Dx/Rx/DC Orders Clinical Impression: Acute cerebral hemorrhage, Accelerated hypertension Prescriptions: No Action biotin 1 mg capsule 1 mg PO DAILY RF: 0 melatonin 3 mg tablet 3 mg PO QHS PRN (Reason: sleep) Qty: 30 RF: 1 clonidine 0.2 mg/24 hr patch weekly 1 patch transdermal QWEEK Qty: 4 RF: 1 multivitamin with folic acid [Thera] 1 TABLET tablet 1 tab PO DAILY RF: 0 losartan 25 mg tablet 25 mg PO BID RF: 0 Hold Instructions: Pxt not tolerating Primary Care Provider: Samuel Moreland Referrals: Samuel Moreland MD [Primary Care Provider] - Disposition Disposition: Acute Care Hospital Discharge Location: [facility]
[2020-11-06 06:28] VITALS: PULSE 60; RESP 14; O2SAT 96
[2020-11-06 06:56] VITALS: BP 200/88; PULSE 61; RESP 14; O2SAT 96
[2020-11-06] MEDS: Losartan Potassium 25 MG Tablet PO (06:57)
[2020-11-06] MEDS: cloNIDine HCl 0.1 MG Tablet PO (08:07)
[2020-11-06 10:17] VITALS: BP 171/55; PULSE 54; RESP 18; O2SAT 96
[2020-11-06 13:26] VITALS: BP 151/82; PULSE 51; RESP 19; O2SAT 97
--- NOTE | 2020-11-06 13:27 | ED.RN ---
pt expressed interest in advance directives. case management in room assisting anel with paperwork. is aware. awaiting new orders from dr. chayo cunningham, rn
--- NOTE | 2020-11-06 13:27 | CM.ED ---
Addendum entered by Sandra Davis 11/06/20 14:30: DMITRI met with patient again. She indicated she has advanced directives and stated they are on file here. Patient spoke to RN who indicated patient had inquired about change in arrest status and not advanced directives. SW met with patient and advised advanced directives are not on file. Patient said I had a health analytics consultant draw them up. SW explained that next time patient comes to the ED or medical appt to bring them so her wishes could be followed via advanced directives. Patient said that maybe the AD are on file at [place]. Patient declined information on advanced directives from [facility]. No further SW needs at this time. 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 She reports that she wants no lifesaving efforts if her medical state decompensates. Patient said that she has living will and HCPOA on file (SW reviewed legal and nothing is in the legal folder). Patient said I am a Jewish and ok with going. Patient reports she understand the DNRCC and has no issues or questions. updated. Sandra MCINTYRE
[2020-11-06 14:02] VITALS: BP 151/82; PULSE 57; RESP 16; O2SAT 95
--- NOTE | 2020-11-06 14:03 | ED.RN ---
DNRCC-Arrest signed by patient and copy sent home with patient and placed in chart. pt was infromed that she is always welcome back if her symptoms get worse or if she has any other concerns. chayo cunningham rn [id number]
== END 2020-11-06 14:05 | disposition home or self-care (01) ==
PROVIDERS: Emergency Provider Emergency Medicine; PCP Internal Medicine
DX: I10 Essential (primary) hypertension (principal); I61.9 Nontraumatic intracerebral hemorrhage, unspecified; Z66 Do not resuscitate; I44.0 Atrioventricular block, first degree; Z90.710 Acquired absence of both cervix and uterus; Z79.899 Other long term (current) drug therapy
CPT/HCPCS: 70450; 80053; 84484; 85025; 93005; 99283

== ENCOUNTER → 2020-11-19 12:29 | Outpatient (CLI) | payer MEDICARE, SELFPAY ==
[2020-11-18 08:59] VITALS: BMI 23.8
[2020-11-19 13:08] LABS: Erythrocyte Sedimentation Rate 17 mm/hr (0-30)
[2020-11-19 13:35] LABS: CRP < 2.90 mg/L (0.0-3.0); Thyroid Stim Hormone (TSH) 1.84 uIU/mL (0.358-3.74)
[2020-11-21 08:00] LABS: ANTINUCLEAR ANTIBODIES DIRECT Negative (Negative)
== END ==
PROVIDERS: PCP Internal Medicine; Visit Provider Psychiatry & Neurology Neurology
DX: I10 Essential (primary) hypertension (principal); Z86.79 Personal history of other diseases of the circulatory system
CPT/HCPCS: 36415; 84443; 85652; 86038; 86140; 86225; 86235

== ENCOUNTER 2020-12-09 09:00 | Outpatient (RCR) | payer MEDICARE, SELFPAY ==
[2020-10-08 15:11] VITALS: BMI 22.6
--- NOTE | 2020-10-21 08:29 | HP.PTEVAL ---
Patient's Visit Information ELIE CUNHA is a 75 year old F referred to Physical Therapy by AGUILA Cruz with a diagnosis of CVA. Date of Evaluation: 10/21/20 Physical Therapist: Elise Ewing DPT - Visit Plan Frequency: 2x /Week Duration: 4 Weeks Plan: Focus on LE and core strength/stabilization- proprioception. HEP Given IE: Kitchen Sink Exercises-HR/TR, marching, standing hip abd, weight shift, mini squat - Subjective Pt reports that she had a stroke approx 2 weeks ago due to HTN. She reports that she thought she had left leg weakness throughout the day- she had friends over and they were worried about her so they took her to the ED. They transferred her to [place] due to the brain bleed but did not have to have surgery. She has had all the tests but they found nothing other than the HTN and put her on a patch. In [place] they gave her an experimental medication and she ended up with a rash and she was horrible for 2 days. 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 No other medical issues. No pain but just doesn't feel normal. Does not use an AD. No N/T. No fall or tripping episodes. Sleep: does not sleep well normally PMHx/Meds: see chart. - Objective Posture: FH, RS- can correct but does not maintain. Gait: decreased stance on the left LE with decreased extension in stance phase- poor jared/toe- No AD. Stairs: asc/desc 8 recip with 2 HR and poor control. HR/TR: able with weight shift to the right. SLS: weight shift but unable to SLS. Sensation: diminished to light touch on the right LE. Reflex: WFL patellar. ROM: WFL in all planes. Strength: Core: fair minus, LE: Left: Hip: 4+/5, Knee: 5/5, Ankle: 5/5 Right: Hip: 4/5, Knee: 4/5, Ankle: 4/5. Flex: HS: moderate. Balance: see FGA. 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 saw sharpener 30 sec: 12 in 15 seconds- wanted to stop was able to complete 23 in 30 seconds with UE A- TU.21 - Balance Scores Functional Gait Assessment Score: 17 % Disability: 43.3400 - Goals Goal 1:: Patient will be I with HEP and progression Goal Time Frame: 4-6 Weeks Goal 2:: 24.9Patient will improve her FGA to 24.9 Goal Time Frame: 4-6 Weeks Goal 3:: Patient will perform sit to stands for the entire 30 seconds Goal Time Frame: 4-6 Weeks Goal 4:: Patient will ambulate >300 feet with a normalized gait pattern Goal Time Frame: 4-6 Weeks - Rehabilitation Potential Physical Therapy Diagnosis: Patient presents with hypomobility- she has decreased strength, proprioception and muscular endurance leading to poor posture and decreased ability to perform ADL's Rehabilitation Potential: Good - Anticipated Interventions Patient/Client Instruction: Educate patient on: Benefits of Fitness Program Therapeutic Exercise to Include: Strength training, Endurance training, Balance training, Body mechanics, Postural training, Flexibilty training, Gait and locomotor training, Neuromotor development, Dynamic Lumbar Stabilization, Scapular Strength/Stabilization For the Purpose of:: To improve muscle performance and motor function Functional Training to Include: ADL Training, Gait training Thank you for the opportunity to evaluate your patient. For Medicare and Medicare HMO plans, please review the plan of care and approve it. It will need to be FAXED BACK to us at [phone] for Medicare purposes. For Medicare only, by signing this I certify the plan of care. Please let me know if there are questions or concerns regarding this plan of care. Physician Signature: Date:
--- NOTE | 2020-12-09 09:32 | HP.PTDCSUM ---
It has been my pleasure to treat ELIE CUNHA referred by AGUILA Cruz, with the diagnosis of CVA for a total of 6 visit(s). Discharge Date: 12/09/20 Please see the following information for a summary of their discharge status. Subjective: Pt. reports overall being ~98% better. She reports no longer having trouble with any thing, but does have some increased fatigue. Pt. reports being compliant with her HEP. Pt. reports no pain and is doing much better. Objective/Function: She does having some mild numbness in L leg, but is not effecting her. 30sec sit to stand test 20 reps. 5/5 throughout BLEs. Pt. is able to ambulate with normal gait pattern without issues. Pt. ambulated 1000' today without issues. FGA . Goal 1:: Patient will be I with HEP and progression Goal Progress: Goal Met Goal 2:: 24.9Patient will improve her FGA to 24.9 Goal Progress: Goal Met Goal 3:: Patient will perform sit to stands for the entire 30 seconds Goal Progress: Goal Met Goal 4:: Patient will ambulate >300 feet with a normalized gait pattern Goal Progress: Goal Met Plan: PT. to be DC from PT at this point Discharge Comments: PT. ws treated with dynamic balance and strengthening exercises. She tested very well and reports being 98% better overall. Pt. is independent with her HEP and will be DC from PT at this point in time. If there are questions or concerns regarding this patient's physical therapy, please feel free to call me at [phone]. Thank you for the referral of this patient. Sincerely, Payam Hope, DPT Balance/Gait/Functional tests - Balance/Special Test Scores Functional Gait Assessment Score: 17 % Disability: 43.3400 Lower Extremity Functional Score: 73
== END 2020-12-09 19:00 | disposition home or self-care (01) ==
LOC: PT 09:00
PROVIDERS: PCP Internal Medicine; Referring Provider Physician Assistant; Visit Provider Physician Assistant
DX: I61.9 Nontraumatic intracerebral hemorrhage, unspecified (principal); R29.898 Other symptoms and signs involving the musculoskeletal system
CPT/HCPCS: 97110; 97161; 97164

== ENCOUNTER 2021-04-14 10:03 | Outpatient (CLI) | payer MEDICARE, SELFPAY ==
[2021-04-14 12:45] LABS: Anion Gap 7 (5-15); BUN 13 mg/dL (7-18); BUN/Creat Ratio 15.3 RATIO (10-20); Calcium,Total 9.2 mg/dL (8.5-10.1); Chloride 103 mmol/L (98-107); Creatinine, Serum 0.85 mg/dL (0.55-1.02); EST Glomerular Filtration Rate 69 mL/min (>60); Est Glom Filt Rate - Afr Amer 83 mL/min (>60); Glucose 82 mg/dL (74-106); Potassium 4.6 mmol/L (3.5-5.1); Sodium Level 139 mmol/L (136-145)
== END 2021-04-14 23:59 | disposition short-term general hospital (02) ==
PROVIDERS: PCP Internal Medicine; Referring Provider Internal Medicine; Visit Provider Internal Medicine
DX: I10 Essential (primary) hypertension (principal)
CPT/HCPCS: 36415; 80048

== ENCOUNTER → 2021-12-15 | Outpatient (CLI) | payer MEDICARE, SELFPAY ==
[2021-12-15 16:41] LABS: Absolute Lymphocyte Count 1.34 X10^3/uL (0.83-4.51); Absolute Neutrophil Count 3.3 X10^3/uL (2.0-7.7); Basophil# 0.04 X10^3/uL; Basophil% 0.8 % (0-1); Eosinophil# 0.04 X10^3/uL; Eosinophils% 0.8 % (0-5); Hematocrit 38.6 % (37-47); Hemoglobin 12.6 g/dL (12.0-15.0); Lymphocyte # 1.34 X10^3/ul (0.83-4.51); Mean Corp Hgb Conc 32.6 g/dL (32-36); Mean Corpuscular Hgb 31.1 pg (27.0-32.0); Mean Corpuscular Volume 95.3 fL (81-99); Mean Platelet Vol. 10.8 fl (6.2-12.0); Monocyte% 7.8 % (0-10); NRBC Flagged by Analyzer 0 % (0-5); Neutrophil # 3.32 X10^3/uL (2.7-7.7); Neutrophil % 64.2 % (47-70); Platelet Count 197 K/mm3 (150-450); RBC Distribution Width CV 12.6 % (11.6-14.6); RBC Distribution Width SD 44.2 fl (35.1-43.9); Red Blood Count 4.05 M/mm3 (4.2-5.4); White Blood Count 5.2 K/mm3 (4.4-11.0)
[2021-12-15 16:55] LABS: ALB/GLOB Ratio 1.1 RATIO (0.9-2.4); AST(SGOT) 17 U/L (15-37); Alanine Aminotransfer ALT/SGPT 16 U/L (13-56); Albumin, Serum 3.5 g/dL (3.2-5.0); Alkaline Phosphatase 82 U/L (45-117); Anion Gap 7 (5-15); BUN 16 mg/dL (7-18); BUN/Creat Ratio 17.4 RATIO (10-20); Calcium,Total 9.1 mg/dL (8.5-10.1); Chloride 105 mmol/L (98-107); Cholesterol 200 mg/dL (200); Creatinine, Serum 0.92 mg/dL (0.55-1.02); EST Glomerular Filtration Rate 63 mL/min (>60); Est Glom Filt Rate - Afr Amer 76 mL/min (>60); Globulin 3.3 g/dL (2.2-4.2); Glucose 88 mg/dL (74-106); High Density Lipoprotein 50 mg/dL; Potassium 3.8 mmol/L (3.5-5.1); Protein, Total 6.8 g/dL (6.4-8.2); Sodium Level 140 mmol/L (136-145); Triglycerides 145 mg/dL; Very Low Density Lipoprotein 29 mg/dL (5-40)
== END | disposition home or self-care (01) ==
LOC: BIMLAB 15:08
PROVIDERS: PCP Internal Medicine; Referring Provider Internal Medicine; Visit Provider Internal Medicine
DX: I10 Essential (primary) hypertension (principal)
CPT/HCPCS: 36415; 80053; 80061; 85025

== ENCOUNTER → 2022-05-04 | Outpatient (CLI) | payer MEDICARE, SELFPAY ==
[2022-05-04 15:35] LABS: Absolute Lymphocyte Count 1.77 X10^3/uL (0.83-4.51); Basophil# 0.03 X10^3/uL; Basophil% 0.6 % (0-1); Eosinophil# 0.04 X10^3/uL; Eosinophils% 0.8 % (0-5); Hematocrit 40.9 % (37-47); Lymphocyte # 1.77 X10^3/ul (0.83-4.51); Lymphocyte % 34.3 % (19-41); Mean Corp Hgb Conc 31.8 g/dL (32-36); Mean Corpuscular Hgb 30.2 pg (27.0-32.0); Mean Corpuscular Volume 95.1 fL (81-99); Mean Platelet Vol. 11.3 fl (6.2-12.0); Monocyte# 0.29 X10^3/uL; Monocyte% 5.6 % (0-10); NRBC Flagged by Analyzer 0 % (0-5); Neutrophil # 3.02 X10^3/uL (2.7-7.7); Neutrophil % 58.5 % (47-70); Platelet Count 188 K/mm3 (150-450); RBC Distribution Width CV 12.8 % (11.6-14.6); RBC Distribution Width SD 44.8 fl (35.1-43.9); White Blood Count 5.2 K/mm3 (4.4-11.0)
[2022-05-04 15:49] LABS: Anion Gap 8 (5-15); BUN 13 mg/dL (7-18); BUN/Creat Ratio 13.9 RATIO (10-20); Calcium,Total 9.1 mg/dL (8.5-10.1); Chloride 103 mmol/L (98-107); Creatinine, Serum 0.93 mg/dL (0.55-1.02); EST Glomerular Filtration Rate 62 mL/min (>60); Est Glom Filt Rate - Afr Amer 75 mL/min (>60); Glucose 141 mg/dL (74-106); Potassium 4.4 mmol/L (3.5-5.1); Sodium Level 140 mmol/L (136-145)
== END | disposition home or self-care (01) ==
LOC: BIMLAB 13:31
PROVIDERS: PCP Internal Medicine; Referring Provider Internal Medicine; Visit Provider Internal Medicine
DX: I10 Essential (primary) hypertension (principal)
CPT/HCPCS: 36415; 80048; 85025

== ENCOUNTER → 2023-04-05 | Outpatient (CLI) | payer MEDICARE, SELFPAY ==
--- OUTSIDE RECORDS SUMMARY | 2023-04-05 15:08 | XMS RPT_ITS | CCD ---
Author Name Unknown Address [address] [facility] [address] [place] [address] Organization [facility] Care Team Providers Care Fitter Up Name Role Phone Celi ACUÑA, Poppy Primary Care Provider Merly ACUÑA, Samuel Scanlon Primary Care Provider Allergies Allergy Classification Reported Allergen(s) Allergy Type Date of Onset Reaction(s) Facility (2 sources) environmental [Other] Propensity to adverse reactions [facility] Work Phone: Medications Completed/Discontinued Medications Medication Drug Class(es) Dates Sig (Normalized) Sig (Original) acyclovir 0.05 mg/mg topical ointment (2 sources) Herpesvirus Nucleoside Analog DNA Polymerase Inhibitor, Herpes Simplex Virus Nucleoside Analog DNA Polymerase Inhibitor, Herpes Zoster Virus Nucleoside Analog DNA Polymerase Inhibitor Start: 06-14-2005 ACYCLOVIR 5 % OINTMENT Use prn only 15 0 06/14/2005 Active Problems Active Problems Problem Classification Problem Date Documented Da te Episodic/Chronic Acute cerebrovascular disease (2 sources) Cerebral hemorrhage; Translations: [Nontraumatic intracerebral hemorrhage, unspecified] Onset: 10-03-2020 11-06-2020 Chronic Essential hypertension (2 sources) Essential hypertension; Translations: [Essential (primary) hypertension] Onset: 03-08-2018 11-06-2020 Chronic Menopausal disorders (2 sources) Menopausal symptom; Translations: [Menopausal and female climacteric states] Onset: 09-26-2011 09-26-2011 Chronic Prolapse of female genital organs (2 sources) Incomplete uterovaginal prolapse; Translations: [Incomplete uterovaginal prolapse] Onset: 09-26-2011 09-26-2011 Chronic Past or Other Problems Problem Classification Problem Date Documented Da te Episodic/Chronic Other connective tissue disease (2 sources) Bilateral cramp of muscle of lower limbs; Translations: [Cramp and spasm] Onset: 02-13-2019 02-13-2019 Episodic Results Test Name Value Interpretation Reference Range Facil ity Encounters Encounter Date Encounter Type Care Provider Facility Start: 02-21-2022 ambulatory Fernanda [facility] Procedures Date Procedure Procedure Detail Performing Clinician Start: 10-03-2020 Antibody screen Plan of Treatment Date Care Activity Detail Author Start: 10-06-2023 DIABETES SCREEN DIABETES SCREEN [facility] Start: 12-08-2021 Influenza vaccination INFLUENZA (#1) [facility] Start: 09-05-2021 COVID-19 VACCINE (3 - Booster for Pfizer series) COVID-19 VACCINE (3 - Booster for Pfizer series) [facility] Start: 06-02-2021 COVID-19 VACCINE (3 - Booster for Pfizer series) COVID-19 VACCINE (3 - Booster for Pfizer series) [facility] Start: 04-09-2021 ADVANCE DIRECTIVE DISCUSSION ADVANCE DIRECTIVE DISCUSSION [facility] Start: 04-09-2021 DEPRESSION ASSESSMENT DEPRESSION ASS ESSMENT [facility] Start: 08-11-2020 ANNUAL PCP TEAM CARBONATION EQUIPMENT OPERATOR DIANA DISEASE VISIT ANNUAL PCP TEAM CHRONIC DISEASE VISIT [facility] Start: 02-26-2019 [facility] DEPRESSION SCREENING [facility] Start: 01-16-2008 BONE DENSITY BONE DENSITY [facility] Start: 07-20-2006 Urine microalbumin profile DTAP,TDAP ,TD (1 - Tdap) [facility] Start: 1993 SHINGRIX VACCINE (1 of 2) PEREIRA GRIX VACCINE (1 of 2) [facility] Start: 1961 BP CONTROLLED (<130/80) BP CONTROLLE D (<130/80) [facility] Start: 1961 HEPATITIS C SCREENING HEPATITIS C IA TYRONE [facility] Immunizations Immunization Date Immunization Notes Care Provider Fa lloyd 02-26-2018 pneumococcal conjuga te vaccine, 13 valent Kristen Xie MA [facility] Work Phone: 01-22-2008 pneumococcal polysaccharide vaccine, 23 valent Kristen Xie MA [facility] Work Phone: 07-19-2006 tetanus and diphther ia toxoids, adsorbed, preservative free, for adult use (2 Lf of tetanus toxoid and 2 Lf of diphtheria toxoid) Kristen Meadowsarlene COKER [facility] 03-05-2002 influenza virus vacc ine, unspecified formulation Kristen Xie MA [facility] Work Phone: 03-05-2002 pneumococcal polysaccharide vaccine, 23 valent Kristen Xie MA [facility] Work Phone: Payers Date Payer Category Payer Unknown SAMI [facility] AND BLUE [facility] ANTHEDWARDO MEDIBLNEFTALI O [id number] 2017-Present [phone] [address] [place] [address] O [id number] Social History Date Type Detail Facility Start: 02-26-2018 Tobacco smoking stat [facility] Never smoked tobacco [facility] Work Phone: Start: 02-26-2018 Tobacco use and exposure Smokeless tobacco non-user [facility] Work Phone: Start: 11-23-2021 Alcohol intake Current non-dr wood of alcohol (finding) [facility] Start: 1945 Sex Assigned At Not on file [facility] Clinical Note 02-21-2022 Note Date & Type Note Facility 02-21-2022 Note Patient Outreach (NE TNAV) ELIE CORLEY ([id number]) 1945 F Date Time Provider Department 02/21/22 FERNANDA STEPHENS During your visit today, we recorded the following information about you: Fernanda Stephens MA 02/21/2022 11:38 AM Signed POPULATION HEALTH NAVIGATION OUTREACH Action/FYI Updated PCP per Care Everywhere. Pt identified by name and : NO Outreach Outcome/Action PCP field updated Did you use a PCP flex slot to schedule this appointment? N/A Reason for Outreach Care Gap or Scheduling/Wellness visits Payer: Payor: SAMI BLUE CROSS AND BLUE SHIELD / Plan: SAMI [place] HMO / Product Type: HMO / Care Gap Reviewed:: N/A Reminder: Reminder note to check Health Maintenance for items below Health Maintenance items due: BP CONTROLLED (<130/80) Never done SHINGRIX VACCINE(1 of 2) Never done DTAP,TDAP,TD(1 - Tdap) due on 07/20/2006 BONE DENSITY Never done ANNUAL PCP TEAM CHRONIC DISEASE VISIT due on 08/11/2020 ADVANCE DIRECTIVE DISCUSSION Never done DEPRESSION ASSESSMENT Never done COVID-19 VACCINE(3 - Booster for Pfizer series) due on 06/02/2021 INFLUENZA(1) due on 12/08/2021 Message Sent to Practice: No Navigation Signature: Fernanda Stephens MA February 21, 2022 11:33 AM Allergies As of Date: 02/21/2022 Noted Allergy Reaction environmental [Other] 07/19/2006 Comments: seasonal allergies Date Reviewed: 10/04/2020 Reviewed by: Ayah Castro RN - Fully Assessed Reason for Visit: Population Health Navigation Outreach [3910] Cmt: SAMI CARE GAPS Prescriptions as of 02/21/2022 - levETIRAcetam (KEPPRA) 500 mg tablet 1 tablet by ORAL/FEEDING TUBE route twice daily for 11 doses. - losartan (COZAAR) 25 mg tablet Take 1 tablet by mouth once daily. - LACTOBACILLUS ACIDOPHILUS (PROBIOTIC ORAL) Take by mouth once daily. - [place]-3 Fatty Acids (FISH OIL) 300 mg cap Take by mouth once daily. - Glucosamine (GLUCOSAMINE RELIEF) 1,000 mg Tab Take 2 tablets by mouth once daily. - BIOTIN ORAL Take by mouth. - Magnesium Oxide-Mg Amino Acid Chelate (MAGNESIUM) 300 mg Cap Take by mouth. - multivitamins w-minerals/lut(CENTRUM SILVER TAB) Take one(1) tablet daily. - ACYCLOVIR 5 % OINTMENT Use prn only Problem List As Of Date 02/21/2022 Noted Resolved Uterovaginal prolapse, incomplete [N81.2] 09/26/2011 Symptomatic menopausal or female climacteric st*09/26/2011 Essential hypertension [I10] 03/08/2018 Bilateral leg cramps [R25.2] 02/13/2019 ICH (intracerebral hemorrhage) (HCC) [I61.9] 10/03/2020 Encounter Status:Closed by FERNANDA STEPHENS on 02/21/22 [facility] Progress note 02-21-2022 Note Date & Type Note Facility 02-21-2022 Note HNO ID: [id number] Author: Fernanda Stephens MA Service: ? Author Type: Casting Machine Control Board Operator Type: Progress Notes Filed: 02/21/2022 11:38 AM Note Text: POPULATION HEALTH NAVIGATION OUTREACH Action/FYI Updated PCP per Care Everywhere. Pt identified by name and : NO Outreach Outcome/Action PCP field updated Did you use a PCP flex slot to schedule this appointment? N/A Reason for Outreach Care Gap or Scheduling/Wellness visits Payer: Payor: SAMI MARIE / Plan: ANTHEM [employer] HMO / Product Type: HMO / Care Gap Reviewed:: N/A Reminder: Reminder note to check Health Maintenance for items below Health Maintenance items due: BP CONTROLLED (<130/80) Never done SHINGRIX VACCINE(1 of 2) Never done DTAP,TDAP,TD(1 - Tdap) due on 07/20/2006 BONE DENSITY Never done ANNUAL PCP TEAM CHRONIC DISEASE VISIT due on 08/11/2020 ADVANCE DIRECTIVE DISCUSSION Never done DEPRESSION ASSESSMENT Never done COVID-19 VACCINE(3 - Booster for Pfizer series) due on 06/02/2021 INFLUENZA(1) due on 12/08/2021 Message Sent to Practice: No Navigation Signature: Fernanda Stephens MA February 21, 2022 11:33 AM [facility] History of Present illness Narrative 02-21-2022 Fernanda Stephens MA - 02/21/2022 11:33 AM EST Note Date & Type Note Facility 02-21-2022 History of Presen t illness Narrative POPULATION HEALTH NAVIGATION OUTREACH Action/FYI Updated PCP per Care Everywhere. Pt identified by name and : NO Outreach Outcome/Action PCP field updated Did you use a PCP flex slot to schedule this appointment? N/A Reason for Outreach Care Gap or Scheduling/Wellness visits Payer: Payor: SAMI MARIE / Plan: ANTHEM [employer] HMO / Product Type: HMO / Care Gap Reviewed:: N/A Reminder: Reminder note to check Health Maintenance for items below Health Maintenance items due: BP CONTROLLED (<130/80) Never done SHINGRIX VACCINE(1 of 2) Never done DTAP,TDAP,TD(1 - Tdap) due on 07/20/2006 BONE DENSITY Never done ANNUAL PCP TEAM CHRONIC DISEASE VISIT due on 08/11/2020 ADVANCE DIRECTIVE DISCUSSION Never done DEPRESSION ASSESSMENT Never done COVID-19 VACCINE(3 - Booster for Pfizer series) due on 06/02/2021 INFLUENZA(1) due on 12/08/2021 Message Sent to Practice: No Navigation Signature: Fernanda Stephens MA February 21, 2022 11:33 AM documented in this encounter [facility] Progress note 12-16-2021 Note Date & Type Note Facility 12-16-2021 Note HNO ID: [id number] Author: Kristen Xie MA Service: ? Author Type: Casting Machine Control Board Operator Type: Progress Notes Filed: 12/16/2021 3:12 PM Note Text: POPULATION HEALTH NAVIGATION OUTREACH Action/FYI Patient due for medicare wellness Left message to call office. 12/16/2021 3:12 PM Pt identified by name and : NO Outreach Outcome/Action Unable to reach patient: Left message Did you use a PCP flex slot to schedule this appointment? N/A Reason for Outreach Care Gap or Scheduling/Wellness visits Payer: Payor: SAMI [employer] / Plan: ANTHEM [employer] HMO / Product Type: HMO / Care Gap Reviewed:: Annual Wellness visit Reminder: Reminder note to check Health Maintenance for items below Health Maintenance items due: HEPATITIS C SCREENING Never done BP CONTROLLED (<130/80) Never done SHINGRIX VACCINE(1 of 2) Never done DTAP,TDAP,TD(1 - Tdap) due on 07/20/2006 BONE DENSITY Never done DEPRESSION SCREENING due on 02/26/2019 ANNUAL PCP TEAM CHRONIC DISEASE VISIT due on 08/11/2020 ADVANCE DIRECTIVE DISCUSSION Never done COVID-19 VACCINE(3 - Booster for Pfizer series) due on 09/05/2021 INFLUENZA(1) due on 12/08/2021 Message Sent to Practice: No Navigation Signature: Kristen Xie MA December 16, 2021 3:09 PM [facility] History of Present illness Narrative 12-16-2021 Kristen Xie MA - 12/16/2021 3:09 PM EDT Note Date & Type Note Facility 12-16-2021 History of Presen t illness Narrative POPULATION HEALTH NAVIGATION OUTREACH Action/FYI Patient due for medicare wellness Left message to call office. 12/16/2021 3:12 PM Pt identified by name and : NO Outreach Outcome/Action Unable to reach patient: Left message Did you use a PCP flex slot to schedule this appointment? N/A Reason for Outreach Care Gap or Scheduling/Wellness visits Payer: Payor: [email or web address] / Plan: [employer] HMO / Product Type: HMO / Care Gap Reviewed:: Annual Wellness visit Reminder: Reminder note to check Health Maintenance for items below Health Maintenance items due: HEPATITIS C SCREENING Never done BP CONTROLLED (<130/80) Never done SHINGRIX VACCINE(1 of 2) Never done DTAP,TDAP,TD(1 - Tdap) due on 07/20/2006 BONE DENSITY Never done DEPRESSION SCREENING due on 02/26/2019 ANNUAL PCP TEAM CHRONIC DISEASE VISIT due on 08/11/2020 ADVANCE DIRECTIVE DISCUSSION Never done COVID-19 VACCINE(3 - Booster for Pfizer series) due on 09/05/2021 INFLUENZA(1) due on 12/08/2021 Message Sent to Practice: No Navigation Signature: Kristen Xie MA December 16, 2021 3:09 PM documented in this encounter [facility] Clinical Note 12-16-2021 Note Date & Type Note Facility 12-16-2021 Note Patient Outreach (DUNIA TNAV) ELIE CORLEY ([id number]) 1945 F Date Time Provider Department 12/16/21 KRISTEN XIE During your visit today, we recorded the following information about you: Kristen Xie MA 12/16/2021 3:12 PM Signed POPULATION HEALTH NAVIGATION OUTREACH Action/ Patient due for medicare wellness Left message to call office. 12/16/2021 3:12 PM Pt identified by name and : NO Outreach Outcome/Action Unable to reach patient: Left message Did you use a PCP flex slot to schedule this appointment? N/A Reason for Outreach Care Gap or Scheduling/Wellness visits Payer: Payor: SAMI [employer] / Plan: SAMI [employer] HMO / Product Type: HMO / Care Gap Reviewed:: Annual Wellness visit Reminder: Reminder note to check Health Maintenance for items below Health Maintenance items due: HEPATITIS C SCREENING Never done BP CONTROLLED (<130/80) Never done SHINGRIX VACCINE(1 of 2) Never done DTAP,TDAP,TD(1 - Tdap) due on 07/20/2006 BONE DENSITY Never done DEPRESSION SCREENING due on 02/26/2019 ANNUAL PCP TEAM CHRONIC DISEASE VISIT due on 08/11/2020 ADVANCE DIRECTIVE DISCUSSION Never done COVID-19 VACCINE(3 - Booster for Pfizer series) due on 09/05/2021 INFLUENZA(1) due on 12/08/2021 Message Sent to Practice: No Navigation Signature: Kristen Xie MA December 16, 2021 3:09 PM Allergies As of Date: 12/16/2021 Noted Allergy Reaction environmental [Other] 07/19/2006 Comments: seasonal allergies Date Reviewed: 10/04/2020 Reviewed by: Ayah Castro RN - Fully Assessed Reason for Visit: Population Health Navigation Outreach [3910] Cmt: Sami Rogers Prescriptions as of 12/16/2021 - levETIRAcetam (KEPPRA) 500 mg tablet 1 tablet by ORAL/FEEDING TUBE route twice daily for 11 doses. - losartan (COZAAR) 25 mg tablet Take 1 tablet by mouth once daily. - LACTOBACILLUS ACIDOPHILUS (PROBIOTIC ORAL) Take by mouth once daily. - [place]-3 Fatty Acids (FISH OIL) 300 mg cap Take by mouth once daily. - Glucosamine (GLUCOSAMINE RELIEF) 1,000 mg Tab Take 2 tablets by mouth once daily. - BIOTIN ORAL Take by mouth. - Magnesium Oxide-Mg Amino Acid Chelate (MAGNESIUM) 300 mg Cap Take by mouth. - multivitamins w-minerals/lut(CENTRUM SILVER TAB) Take one(1) tablet daily. - ACYCLOVIR 5 % OINTMENT Use prn only Problem List As Of Date 12/16/2021 Noted Resolved Uterovaginal prolapse, incomplete [N81.2] 09/26/2011 Symptomatic menopausal or female climacteric st*09/26/2011 Essential hypertension [I10] 03/08/2018 Bilateral leg cramps [R25.2] 02/13/2019 ICH (intracerebral hemorrhage) (HCC) [I61.9] 10/03/2020 Encounter Status:Closed by KRISTEN XIE on 12/16/21 [facility] Progress note 10-04-2020 Note Date & Type Note Facility 10-04-2020 Note HNO ID: [id number] Author: Aniket Vuong DO Service: Neurology ICU Author Type: Physician Type: Progress Notes Filed: 10/04/2020 1:32 PM Note Text: SERVICE DATE: 10/04/2020 SERVICE TIME: 11:11 AM NEURO ICU PROGRESS NOTE DATE OF ADMISSION: 10/03/2020 Subjective Hospital Course: 10/04: Stable overnight. Exam unremarkable. Patient has no complaints. Awaiting MRI brain, CT C/A/P. Events Since Last Note: See above Objective BP 137/54 Pulse 70 Temp 37.1 ?C (98.8 ?F) (Temporal) Resp 21 Ht 165.1 cm (5' 5 ) Wt 64.8 kg (142 lb 13.7 oz) SpO2 97% BMI 23.77 kg/m? Weight change: 0 kg (0 lb) Neuro: awake, alert and oriented x3, PERRL, EOMI, visual goldberg intact, speech fluent, steady gait GCS: Eyes: 4. Spontaneous Verbal: 5: Oriented Motor: 6: Obeys Motor commands Total: 15 CRANIAL NERVES: Normal mood and affect. CNII-XII grossly intact. MOTOR STRENGTH: Upper and lower extremity 5/5 bilaterally SENSATION: Intact light touch COORDINATION: Finger-to- nose-finger intact bilaterally CV: RRR Pulm: CTAB GI/: soft, non-tender, non-distended Skin/Extremities: Edema- No Peripheral pulses- Present all extremities Wounds/Drsgs- No Breakdown- No Diagnostic tests reviewed for today's visit: Most recent labs and imaging results. Lines, Drains, and Airways Line Peripheral 10/03/2031 Assessment Left Hand 20 Gauge 1 day Peripheral 10/03/2031 Left Antecubital 20 Gauge 1 day ICU Checklist Last Documented/Reviewed time: 10/04/2020 8:16 AM -------- A= Assess, Prevent, Manage Pain Pain adequately controlled?: Yes C= Choice of Sedation and Analgesia RASS at Goal?: Yes B= Both Spontaneous Awakening and Breathing Trials Ventilator: None D= Delirium: Assess, Prevent and Manage ICU Delirium Status: CAM Negative - no action required Sleep adequate?: Yes Restraint Status: None E= Early Mobility/Excercise ICU Mobility: ICU Mobility-Pt Has Been Out of Bed: No - Specify F= Family Engagement and Empowerment ICU plan of care visit at bedside in last 24 hours: Yes, Provider, RN, Patient/ designee ICU Disposition: ICU Disposition- Is Patient Clinically Ready to Transfer to [facility] or SDU?: No Discharge Planning: To be determined Prevention: Line Status: None Samuel Status: None Pressure Injury Status: None GI/Stress Ulcer Prophylaxis: None - not required Nutrition is at Goal: Yes VTE Prophylaxis: Chemoprophylaxis: No chemoprophylaxis Mechanical Prophylaxis: Knee high SCD No Chemoprophylaxis Reason: Bleeding risk, Active bleeding PERSONAL INVOLVEMENT IN CARE: Reviewing initiation, responses and adjustments to therapies, coordination of care, and updating family with Staff Physician, Dr. Vuong. Assessment AND Plan 75yo female with PMHx HTN, who presented to OSH for LLE numbness x3d. CTH revealed 1.8 x 1.2 x1.7 cm ovoid hemorrhage in high parasagittal prefrontal right lobe w/ smaller punctate foci suspicious for hemorrhage. Pt was transferred to [facility] for further w/u. Active Hospital Problems as of 10/04/2020 Noted - Resolved POA Hospital * (Principal) ICH (intracerebral hemorrhage) (HCC) 10/03/2020 - Present Yes Current Assessment AND Plan Assessment: 1.8 x 1.2 x1.7 cm ovoid hemorrhage in high parasagittal prefrontal right lobe -- ?primary hemorrhage or hemorrhagic mass lesion PLAN: -- check MRI brain w/wo and CT C/A/P to r/o malignancy -- CTA H/N 10/03 showed right frontoparietal IPH, small IPH left frontal and temporal, concern for brain metastasis or hemorrhage -- goal SBP <160 -- continue home cozaar (repeat BMP to monitor K, may need to d/c) -- hold ASA -- c/s NSGY -- Keppra 500mg per NSGY for sz ppx -- tele -- TTE -- neuro checks q4h -- PT/OT Medication and Non-Pharmacologic VTE Prophylaxis/Anticoagulants 10/03/20 0500 activity - mobilize patient (wa,oh) VTE Prophylaxis: Contraindicated d/t bleeding risk Plan of care discussed with: Provider, RN, Patient and ICU Team SIGNATURE: Kaye Cueto DO PATIENT NAME: Elie Corley DATE: October 04, 2020 TIME: 11:11 AM Neuro ICU Progress Note (Staff Addendum) THE NEURO ICU MANAGEMENT OF THIS PATIENT WAS DISCUSSED WITH THE NSICU TEAM UNDER DR. VUONG I have reviewed the progress note obtained and documented by the resident, Dr. Cueto and I personally participated in the jackson components. I have discussed the case and management of the patient's care. The following comments revise or confirm relevant jackson components of the note. Please see the documented [id number]-[id number] plan in the updated problem list. PATIENT PROBLEMS I REVIEWED, REVISED AND/OR INITIATED: The care of this patient required my full attention and direct personal management of: Principal Problem: ICH (intracerebral hemorrhage) (HCC) Resolved Problems: * No resolved hosp (more content not included)... [facility] Progress note 10-04-2020 Note Date & Type Note Facility 10-04-2020 Note HNO ID: [id number] Author: Storm Muhammad APRN.PROFESSOR [employer] Service: Neurosurgery Author Type: Nurse Practitioner Type: Progress Notes Filed: 10/04/2020 3:28 PM Note Text: Neurosurgery Progress Note SERVICE DATE: 10/04/2020 SUBJECTIVE: NAEON. No acute complaints. OBJECTIVE: Vitals: Temp (24hrs), Av.6 ?C (97.9 ?F), Min:36 ?C (96.8 ?F), Max:37.1 ?C (98.8 ?F) BP 159/74 Pulse 61 Temp 36 ?C (96.8 ?F) (Temporal) Resp 16 Ht 165.1 cm (5' 5 ) Wt 64.8 kg (142 lb 13.7 oz) SpO2 97% BMI 23.77 kg/m? O2 Therapy: Room Air IANDO: Date 10/03/20 1500 - 10/04/20 0659 10/04/20 0700 - 10/05/20 0659 Shift 1190-1638 5296-1656 24 Hour Total 0160-1269 9911-2085 7056-0102 24 Hour Total INTAKE PO 240 480 120 120 PO 240 480 120 120 IV 50 Volume (mL) (magnesium sulfate in sterile water 2 g in sterile water 50 ml) 50 Shift Total 240 530 120 120 OUTPUT Urine Urine Not Saved. 2 x 2 x 8 x 1 x 1 x Shift Total Weight (kg) 64.8 64.8 64.8 64.8 64.8 64.8 64.8 Medications: Current Facility-Administered Medications Medication Dose Route Frequency - mupirocin 2 % 0.5 g ointment (BACTROBAN) 0.5 g NASAL BID - acetaminophen 650 mg tab(s) (TYLENOL) 650 mg ORAL/FEEDING TUBE q 4 H PRN - docusate sodium 100 mg cap(s) (COLACE) 100 mg ORAL BID - perflutren lipid microspheres 1.1 mg/mL 1.3 mL injection (DEFINITY) 1.3 mL INTRAVENOUS DIRECTED PRN - iv contrast (radiology procedure) INTRAVENOUS DIRECTED PRN - levETIRAcetam 500 mg tab(s) (KEPPRA) 500 mg ORAL/FEEDING TUBE BID - melatonin 6 mg tab(s) 6 mg ORAL HS PRN - losartan 25 mg tab(s) (COZAAR) 25 mg ORAL/FEEDING TUBE DAILY Labs: Recent Labs 10/04/20 0607 10/03/20 1136 10/03/20 0521 10/03/20 0519 NA 139 -- -- -- K 5.1 -- -- -- CHLOR 106* -- -- -- CO2 25 -- -- -- BUN 17 -- -- -- CREAT 1.03* -- -- -- GLUC 96 -- -- -- ANION 8* -- -- -- CA 9.1 -- -- -- MG 2.2 -- -- 1.6* WBC 4.89 -- 4.73 -- HB 12.2 -- 11.9 -- HCT 39.4 -- 37.9 -- PLT 187 -- 168 -- INR -- 1.0 -- -- Imaging: CTA HEAD/NECK W W/O IVCON 10/03/2020 ?2:59 PM - Radiology, Oru In Impression IMPRESSION: 1. ?Stable medial right frontoparietal junction intraparenchymal hemorrhage. Stable probable small intraparenchymal hemorrhages in the left frontal and temporal subcortical regions. The primary differential considerations include hemorrhagic brain metastasis or hemorrhage due to multiple underlying cavernous angiomas. Follow-up MRI brain without and with IV contrast is suggested. 2. ? Mild chronic small vessel ischemic changes of the supratentorial white matter. Minimal generalized brain parenchymal volume loss. 3. ?Minimal atherosclerotic plaque involving the bilateral carotid artery bifurcations without measurable stenosis. CTA of the head and neck is otherwise unremarkable. No evidence of arteriovenous malformation or arteriovenous fistula. No evidence of dural venous sinus thrombosis. Exam: GENERAL: No distress, Alert NEURO: AAOx3, JOHN, EOMI. Speech clear, fluent. No facial droop, tongue midline. CN II-XII intact. Strength 5/5 in all extremities. HEENT: normocephalic, atraumatic LUNGS: Unlabored breathing CARDIAC: Regular rate and rhythm as above. Pulses 2+ DP, radial ABDOMEN: Soft, non-tender, non-distended EXTREMITIES: OSORIO, No deformities, No edema SKIN: Skin color, texture, turgor normal, No rashes or lesions ASSESSMENT AND PLAN: Active Hospital Problems Diagnosis Date Noted - ICH (intracerebral hemorrhage) (HCC) 10/03/2020 Elie Corley is a 75 year old female who presented with ovoid hemorrhage in high parasagittal prefrontal R lobe, c/f hemorrhagic metastasis. - Neuro as above - SBP <160 - MRI Brain w/wo pending - CT C/A/P pending - Continue Keppra - No DVT chemoppx at this time. SCDs ok. - No plans for neurosurgical intervention at this time - Med mgmt per NSICU SIGNATURE: Storm Muhammad APRN.CNP PATIENT NAME: Elie Corley DATE: October 04, 2020 TIME: 3:18 PM Pager: [phone] [facility] Clinical Note 10-03-2020 Note Date & Type Note Facility 10-03-2020 Note HNO ID: [id number] Author: ABDOUL Martin Service: Care Management Author Type: Embedded Hardware Engineer Type: Care Mgt Progress Note Filed: 10/03/2020 3:28 PM Note Text: CARE MANAGEMENT PROGRESS NOTE SERVICE DATE: 10/03/2020 SERVICE TIME: 3:22 PM LOS: 0 days SW attempted to complete assessment with pt at bedside, pt fell asleep. SIGNATURE: ABDOUL Martin PATIENT NAME: Elie Corley DATE: October 03, 2020 TIME: 3:22 PM PAGER/CONTACT #: [phone] [facility] Summary Purpose Family History No Family History Records FoundNo Family History Records Found Advance Directives No Advanced Directives Records FoundDocuments on File Type Date Recorded Patient Second Helper Expl anation Advance Directive(s) 03/26/2015 1:05 PM Additional Source Comments INFORMATION SOURCE (unrecogn ized section and content) DATE CREATED AUTHOR AUTHOR'S ORGANIZ ATION 02/23/2022 [facility] Source Comments (unrecognize d section and content) In the event this informatio n is protected by the Federal Confidentiality of Alcohol and Drug Abuse Patient Records regulations: The Federal rules restrict any use of the information to criminally investigate or prosecute any alcohol or drug abuse patient.[facility] the event this information is protected by the Federal Confidentiality of Alcohol and Drug Abuse Patient Records regulations: The Federal rules restrict any use of the information to criminally investigate or prosecute any alcohol or drug abuse patient.[facility] Reason for Visit (unrecogniz ed section and content) Reason Onset Date Comments Population Health Navigation Outreach 02/21/2022 ANTH CARE GAPS Care Teams (unrecognized sec tion and content) Fitter Up Relationship Specialty Start Date End Date Samuel Moreland MD [address] [place] [address] PCP - General Internal Medicine 02/21/22 FOR RECORDS PERTAINING TO PATIENTS WHO ARE OR HAVE BEEN ENROLLED IN A CHEMICAL DEPENDENCY/SUBSTANCEABUSE PROGRAM, SOME INFORMATION MAY BE OMITTED. This clinical summary was aggregated from multiple sources. Caution should be exercised in using it in the provision of clinical care. This summary normalizes information from multiple sources, and as a consequence, information in this document may materially change the coding, format and clinical context of patient data. In addition, data may be omitted in some cases. CLINICAL DECISIONS SHOULD BE BASED ON THE PRIMARY CLINICAL RECORDS. [employer] [facility]. provides no warranty or guarantee of the accuracy or completeness of information in this document.
[2023-04-05 16:44] LABS: Absolute Lymphocyte Count 1.86 X10^3/uL (0.83-4.51); Absolute Neutrophil Count 3.2 X10^3/uL (2.0-7.7); Basophil# 0.04 X10^3/uL; Basophil% 0.7 % (0-1); Eosinophil# 0.13 X10^3/uL; Eosinophils% 2.4 % (0-5); Hematocrit 41.6 % (37-47); Hemoglobin 12.9 g/dL (12.0-15.0); Lymphocyte # 1.86 X10^3/ul (0.83-4.51); Lymphocyte % 33.6 % (19-41); Mean Corpuscular Hgb 30.2 pg (27.0-32.0); Mean Corpuscular Volume 97.4 fL (81-99); Mean Platelet Vol. 11.2 fl (6.2-12.0); Monocyte# 0.33 X10^3/uL; NRBC Flagged by Analyzer 0 % (0-5); Neutrophil # 3.16 X10^3/uL (2.7-7.7); Neutrophil % 57.1 % (47-70); Platelet Count 229 K/mm3 (150-450); RBC Distribution Width CV 12.8 % (11.6-14.6); RBC Distribution Width SD 45.4 fl (35.1-43.9); Red Blood Count 4.27 M/mm3 (4.2-5.4); White Blood Count 5.5 K/mm3 (4.4-11.0)
[2023-04-05 17:03] LABS: AST(SGOT) 21 U/L (15-37); Alanine Aminotransfer ALT/SGPT 15 U/L (13-56); Albumin, Serum 3.5 g/dL (3.2-5.0); Alkaline Phosphatase 88 U/L (45-117); Anion Gap 6 (5-15); BUN 20 mg/dL (7-18); BUN/Creat Ratio 19.8 RATIO (10-20); Chloride 106 mmol/L (98-107); Cholesterol 204 mg/dL (200); Creatinine, Serum 1.01 mg/dL (0.55-1.02); EST Glomerular Filtration Rate 56 mL/min (>60); Est Glom Filt Rate - Afr Amer 68 mL/min (>60); Globulin 3.6 g/dL (2.2-4.2); Glucose 144 mg/dL (74-106); High Density Lipoprotein 45 mg/dL; Potassium 4.8 mmol/L (3.5-5.1); Protein, Total 7.1 g/dL (6.4-8.2); Sodium Level 141 mmol/L (136-145); Triglycerides 215 mg/dL; Very Low Density Lipoprotein 43 mg/dL (5-40)
== END | disposition home or self-care (01) ==
LOC: BIMLAB 14:47
PROVIDERS: PCP Internal Medicine; Referring Provider Internal Medicine; Visit Provider Internal Medicine
DX: I10 Essential (primary) hypertension (principal)
CPT/HCPCS: 36415; 80053; 80061; 85025

== ENCOUNTER → 2023-05-10 | Outpatient (CLI) | payer MEDICARE, SELFPAY ==
--- NOTE | 2023-05-10 12:55 | BD_ITS ---
STUDY: DUAL ENERGY X-RAY ABSORPTIOMETRY / DXA REASON FOR EXAM: Female, 78 years old. Post - Menopausal TECHNIQUE: Bone Mineral Density (BMD) measurements of lumbar spine and bilateral hips were obtained. COMPARISON: None. FINDINGS: Lumbar Spine (L1-L4): g/cm2 (0.965) / T-score (-0.7) / Z-score (1.9) Findings are suggestive of normal bone density with a low fracture risk. Left Femur Total: g/cm2 (0.723) / T-score (-1.8) / Z-score (0.3) Left Femoral Neck: g/cm2 (0.571) / T-score (-2.5) / Z-score (-0.2) Right Femur Total: g/cm2 (0.695) / T-score (-2.0) / Z-score (0.0) Right Femoral Neck: g/cm2 (0.565) / T-score (-2.6) / Z-score (-0.2) BD/Dexa Bone Density Study IMPRESSION: The patient is considered osteoporotic as outlined below according to World Dalton Organization (WHO) criteria with a high fracture risk. Reference Information: The T-score is the number of standard deviations above or below the standard which is normal for young adults at their peak bone mineral density. The World Health Organization (WHO) interprets the T-scores as follows: Above -1 Normal bone density Between -1 and -2.5 Osteopenia Equal to / or below -2.5 Osteoporosis As a practical clinical guideline, osteopenia may be graded as follows: Mild -1 through -1.5 Moderate -1.6 through -2.0 Severe -2.1 through -2.4 The Z-score is the number of standard deviations above or below age-matched controls. A Z-score of less than -1.5 would be considered abnormal. References: 1. NIH Osteoporosis and Related Bone Diseases www osteo.org 2. International Society for Clinical Densitometry www iscd.org 3. National Osteoporosis Foundation www nof.org Electronically Signed: Makrus Taylor MD at 10:54 EST ,
--- OUTSIDE RECORDS SUMMARY | 2023-05-10 14:49 | XMS RPT_ITS | CCD ---
Author Name Unknown Address [address] [facility] [address] [place] [address] Organization [facility] Care Team Providers Care Psychometrician Name Role Phone Celi ACUÑA, Poppy Primary Care Provider Merly ACUÑA, Samuel Scanlon Primary Care Provider Allergies Allergy Classification Reported Allergen(s) Allergy Type Date of Onset Reaction(s) Facility (2 sources) environmental [Other] Propensity to adverse reactions [facility] Work Phone: Medications Completed/Discontinued Medications Medication Drug [...] Provider Facility Start: 02-21-2022 ambulatory Fernanda [facility] [place] Procedures Date Procedure Procedure Detail Performing Clinician Start: 10-03-2020 Antibody screen Plan of Treatment Date Care Activity Detail Author Start: 10-06-2023 DIABETES SCREEN DIABETES SCREEN [facility] Start: 12-08-2021 Influenza vaccination INFLUENZA (#1) [facility] Start: 09-05-2021 COVID-19 VACCINE (3 - Booster for Pfizer series) COVID-19 VACCINE (3 - Booster for Pfizer series) [facility] Start: 06-02-2021 COVID-19 VACCINE (3 - Booster for Pfizer series) COVID-19 VACCINE (3 - Booster for Pfizer series) [facility] Start: 04-09-2021 ADVANCE DIRECTIVE DISCUSSION ADVANCE DIRECTIVE DISCUSSION [facility] Start: 04-09-2021 DEPRESSION ASSESSMENT DEPRESSION ASS ESSMENT [facility] Start: 08-11-2020 ANNUAL PCP TEAM [employer] DIANA DISEASE VISIT ANNUAL PCP TEAM CHRONIC DISEASE VISIT [facility] Start: 02-26-2019 Adult depression scr [facility] DEPRESSION SCREENING [facility] Start: 01-16-2008 BONE DENSITY BONE DENSITY [facility] Start: 07-20-2006 Urine microalbumin profile DTAP,TDAP ,TD (1 - Tdap) [facility] Start: 1993 SHINGRIX VACCINE (1 of 2) PEREIRA GRIX VACCINE (1 of 2) [facility] Start: 1961 BP CONTROLLED (<130/80) BP CONTROLLE D (<130/80) [facility] Start: 1961 HEPATITIS C SCREENING HEPATITIS C CA TYRONE [facility] Immunizations Immunization Date Immunization Notes Care Provider Fa lloyd 02-26-2018 pneumococcal conjuga te vaccine, 13 valent Kristen Xie MA [facility] Work Phone: 01-22-2008 pneumococcal polysaccharide vaccine, 23 valent Kristen Xie MA [facility] Work Phone: 07-19-2006 tetanus and diphther ia toxoids, adsorbed, preservative free, for adult use (2 Lf of tetanus toxoid and 2 Lf of diphtheria toxoid) Kristen Meadowsarlene COKER [facility] 03-05-2002 influenza virus vacc ine, unspecified formulation Kristen Xie MA [facility] Work Phone: 03-05-2002 pneumococcal polysaccharide vaccine, 23 valent Kristen Xie MA [facility] Work Phone: Payers Date Payer Category Payer Unknown SAMI LARA [facility] AND [facility] ANTHEDWARDO MEDIBLNEFTALI O [id number] 2017-Present [phone] [address] [place] [address] O [id number] Social History Date Type Detail Facility Start: 02-26-2018 Tobacco smoking stat [facility] Never smoked tobacco [facility] Work Phone: Start: 02-26-2018 Tobacco use and exposure Smokeless tobacco non-user [facility] Work Phone: Start: 11-23-2021 Alcohol intake Current non-dr wood of alcohol (finding) [facility] Start: 1945 Sex Assigned At Not on file [facility] Clinical Note 02-21-2022 Note Date & Type Note Facility 02-21-2022 Note Patient Outreach (NE TNAV) ELIE CORLEY ([id number]) 1945 F Date Time Provider Department 02/21/22 [...] ORAL) Take by mouth once daily. - [place]-3 Fatty Acids (FISH OIL) 300 mg cap [...] Encounter Status:Closed by FERNANDA STEPHENS on 02/21/22 [facility] Progress note 02-21-2022 Note Date & Type Note Facility 02-21-2022 Note HNO ID: [id number] Author: Fernanda Stephens MA Service: ? Author Type: Wash House Supervisor Type: Progress Notes Filed: 02/21/2022 11:38 AM [...] Stephens MA February 21, 2022 11:33 AM [facility] History of Present illness Narrative 02-21-2022 Fernanda [...] 2022 11:33 AM documented in this encounter [facility] Progress note 12-16-2021 Note Date & Type Note Facility 12-16-2021 Note HNO ID: [id number] Author: Kristen Xie MA Service: ? Author Type: Wash House Supervisor Type: Progress Notes Filed: 12/16/2021 3:12 PM [...] or Scheduling/Wellness visits Payer: Payor: SAMI HAMPTON [employer] / Plan: ANTHEM [employer]IBLQ[employer]ru HMO / Product Type: HMO / Care [...] Xie MA December 16, 2021 3:09 PM [facility] History of Present illness Narrative 12-16-2021 Kristen [...] Care Gap or Scheduling/Wellness visits Payer: Payor: [employer] / Plan: [employer] HMO / Product Type: HMO / Care [...] 2021 3:09 PM documented in this encounter [facility] Clinical Note 12-16-2021 Note Date & Type Note Facility 12-16-2021 Note Patient Outreach (DUNIA TNAV) ELIE CORLEY ([id number]) 1945 F Date Time Provider Department 12/16/21 [...] Gap or Scheduling/Wellness visits Payer: Payor: SAMI [employer] / Plan: SAMI MadeiraMadeiraBEATRICEQThru HMO / Product Type: HMO / Care [...] Visit: Population Health Navigation Outreach [[id number]] Cmt: Smai Rogers Prescriptions as of 12/16/2021 - levETIRAcetam (KEPPRA) 500 mg tablet 1 tablet by ORAL/FEEDING TUBE route twice daily for 11 doses. - losartan (COZAAR) 25 mg tablet Take 1 tablet by mouth once daily. - LACTOBACILLUS ACIDOPHILUS (PROBIOTIC ORAL) Take by mouth once daily. - [place]-3 Fatty Acids (FISH OIL) 300 mg cap [...] Encounter Status:Closed by KRISTEN XIE on 12/16/21 [facility] Progress note 10-04-2020 Note Date & Type Note Facility 10-04-2020 Note HNO ID: [id number] Author: Aniket Vuong DO Service: Neurology ICU [...] Is Patient Clinically Ready to Transfer to [facility] or SDU?: No Discharge Planning: To be [...] suspicious for hemorrhage. Pt was transferred to [facility] for further w/u. Active Hospital Problems as [...] Prophylaxis/Anticoagulants 10/03/20 0500 activity - mobilize patient (il,oh) VTE Prophylaxis: Contraindicated d/t bleeding risk Plan [...] of the note. Please see the documented [id number] plan in the updated problem list. PATIENT PROBLEMS I REVIEWED, REVISED AND/OR INITIATED: The care of this patient required my full attention and direct personal management of: Principal Problem: ICH (intracerebral hemorrhage) (HCC) Resolved Problems: * No resolved hosp (more content not included)... [facility] Progress note 10-04-2020 Note Date & Type Note Facility 10-04-2020 Note HNO ID: [id number] Author: Storm Muhammad APRN.MODEL TECHNICIAN Service: Neurosurgery Author Type: Nurse Practitioner Type: [...] 0659 10/04/20 0700 - 10/05/20 0659 Shift [phone] 24 Hour Total [phone] 24 Hour Total INTAKE [address] 480 [...] October 04, 2020 TIME: 3:18 PM Pager: [phone] [facility] Clinical Note 10-03-2020 Note Date & Type Note Facility 10-03-2020 Note HNO ID: [id number] Author: ABDOUL Martin Service: Care Management Author Type: Seat Joiner Type: Care Mgt Progress Note Filed: 10/03/2020 3:28 PM Note Text: CARE MANAGEMENT PROGRESS NOTE SERVICE DATE: 10/03/2020 SERVICE TIME: 3:22 PM LOS: 0 days SW attempted to complete assessment with pt at bedside, pt fell asleep. SIGNATURE: ABDOUL Martin PATIENT NAME: Elie Corley DATE: October 03, 2020 TIME: 3:22 PM PAGER/CONTACT #: [phone] [facility] Summary Purpose Family History No Family History Records FoundNo Family History Records Found Advance Directives No Advanced Directives Records FoundDocuments on File Type Date Recorded Patient Chief Clerk Shelter Expl anation Advance Directive(s) 03/26/2015 1:05 PM Additional Source Comments INFORMATION SOURCE (unrecogn ized section and content) DATE CREATED AUTHOR AUTHOR'S ORGANIZ ATION 02/23/2022 [facility] Source Comments (unrecognize d section and content) In the event this informatio n is protected by the Federal Confidentiality of Alcohol and Drug Abuse Patient Records regulations: The Federal rules restrict any use of the information to criminally investigate or prosecute any alcohol or drug abuse patient.[facility] the event this information is protected by the Federal Confidentiality of Alcohol and Drug Abuse Patient Records regulations: The Federal rules restrict any use of the information to criminally investigate or prosecute any alcohol or drug abuse patient.[facility] Reason for Visit (unrecogniz ed section and content) Reason Onset Date Comments Population Health Navigation Outreach 02/21/2022 ANTH CARE GAPS Care Teams (unrecognized sec tion and content) Psychometrician Relationship Specialty Start Date End Date Samuel Moreland MD [address] [place] [address] PCP - General Internal Medicine 02/21/22 FOR [...] BE BASED ON THE PRIMARY CLINICAL RECORDS. [employer] [facility]. provides no warranty or guarantee of the accuracy or completeness of information in this document.
[2023-05-10 16:37] LABS: Vitamin D,25 Hydroxy 42.1 ng/mL
[2023-05-10 17:04] LABS: Anion Gap 3 (5-15); BUN 15 mg/dL (7-18); BUN/Creat Ratio 16.6 RATIO (10-20); Calcium,Total 9.2 mg/dL (8.5-10.1); Chloride 104 mmol/L (98-107); EST Glomerular Filtration Rate 64 mL/min (>60); Est Glom Filt Rate - Afr Amer 77 mL/min (>60); Glucose 161 mg/dL (74-106); Potassium 3.9 mmol/L (3.5-5.1); Sodium Level 135 mmol/L (136-145)
[2023-05-11 09:37] LABS: Hemoglobin A1c 5.7 % (3.8-5.6)
== END | disposition home or self-care (01) ==
PROVIDERS: PCP Internal Medicine; Referring Provider Internal Medicine; Visit Provider Internal Medicine
DX: R73.9 Hyperglycemia, unspecified (principal); Z78.0 Asymptomatic menopausal state; I10 Essential (primary) hypertension; M85.80 Other specified disorders of bone density and structure, unspecified site
CPT/HCPCS: 36415; 77080; 80048; 82306; 83036

== ENCOUNTER → 2023-07-30 | Outpatient (CLI) | payer MEDICARE, SELFPAY ==
[2023-07-30 12:08] LABS: Absolute Lymphocyte Count 1.25 X10^3/uL (0.83-4.51); Absolute Neutrophil Count 2.4 X10^3/uL (2.0-7.7); Basophil# 0.02 X10^3/uL; Basophil% 0.5 % (0-1); Eosinophil# 0.02 X10^3/uL; Eosinophils% 0.5 % (0-5); Hematocrit 40.8 % (37-47); Lymphocyte # 1.25 X10^3/ul (0.83-4.51); Lymphocyte % 30.3 % (19-41); Mean Corp Hgb Conc 31.9 g/dL (32-36); Mean Corpuscular Hgb 30.4 pg (27.0-32.0); Mean Corpuscular Volume 95.6 fL (81-99); Monocyte# 0.45 X10^3/uL; Monocyte% 10.9 % (0-10); NRBC Flagged by Analyzer 0 % (0-5); Neutrophil # 2.37 X10^3/uL (2.7-7.7); Neutrophil % 57.6 % (47-70); Platelet Count 201 K/mm3 (150-450); RBC Distribution Width SD 45.9 fl (35.1-43.9); Red Blood Count 4.27 M/mm3 (4.2-5.4); White Blood Count 4.1 K/mm3 (4.4-11.0)
[2023-07-30 12:40] LABS: ALB/GLOB Ratio 0.9 RATIO (0.9-2.4); AST(SGOT) 20 U/L (15-37); Alanine Aminotransfer ALT/SGPT 17 U/L (13-56); Albumin, Serum 3.7 g/dL (3.2-5.0); Alkaline Phosphatase 87 U/L (45-117); Anion Gap 4 (5-15); BUN 14 mg/dL (7-18); BUN/Creat Ratio 18.1 RATIO (10-20); Calcium,Total 8.6 mg/dL (8.5-10.1); Chloride 105 mmol/L (98-107); Creatinine, Serum 0.77 mg/dL (0.55-1.02); EST Glomerular Filtration Rate 76 mL/min (>60); Est Glom Filt Rate - Afr Amer 92 mL/min (>60); Globulin 3.9 g/dL (2.2-4.2); Glucose 76 mg/dL (74-106); Potassium 4.7 mmol/L (3.5-5.1); Protein, Total 7.6 g/dL (6.4-8.2); Sodium Level 137 mmol/L (136-145)
== END | disposition home or self-care (01) ==
LOC: BIMLAB 10:27
PROVIDERS: PCP Internal Medicine; Visit Provider Internal Medicine
DX: Z01.818 Encounter for other preprocedural examination (principal); I10 Essential (primary) hypertension
CPT/HCPCS: 36415; 80053; 85025

== ENCOUNTER → 2023-08-06 | Outpatient (CLI) | payer MEDICARE, SELFPAY ==
--- NOTE | 2023-08-10 11:03 | STRESSREP ---
Stress Test Report Date: 08/10/2023 Procedure: Exercise tolerance test Indications: Abnormal EKG Consent: Per the patient Procedure: The patient exercised on a Vasu protocol for 6 minutes achieving a peak heart rate of 150 bpm (107% predicted maximal heart rate) with a peak blood pressure 152/70 mmHg and a peak MET capacity of approximately 7 MET's. The baseline ECG demonstrated normal sinus rhythm. The peak exercise ECG demonstrated no significant ischemic changes. [There were no cardiac dysrhythmias pretest, during exercise, or recovery]. The functional capacity was considered excellent for age. The patient had no complaint of chest discomfort during exercise or recovery. The examination was discontinued secondary to achieving target heart rate. Impression: 1. Technically adequate (percent predicted maximal heart rate greater than 85%) exercise tolerance test 2. Stress test is negative for exercise-induced chest pain. 3. Stress test test is negative for exercise-induced EKG changes of ischemia. 4. Functional capacity is excellent for age This note was generated with Pivot Ac[employer] software. It may contain incorrect words, spelling, and punctuation that were not noted in checking the note before signing.
== END | disposition home or self-care (01) ==
LOC: CVS 09:45
PROVIDERS: PCP Internal Medicine; Visit Provider Internal Medicine
DX: R94.31 Abnormal electrocardiogram [ECG] [EKG] (principal)
CPT/HCPCS: 93017

== ENCOUNTER 2023-09-17 09:47 | Emergency (ER) | payer MEDICARE, SELFPAY ==
[2023-09-17 09:48] VITALS: BP 195/68; PULSE 61; RESP 16; TEMP 36; O2SAT 98
--- NOTE | 2023-09-17 09:52 | EX.ED.DYSGE1 ---
HPI History of Present Illness Chief Complaint: General Illness Informant: patient Onset/Context/Timing Onset: Days (2 days ago) Context: Sudden Onset Timing: Continuous Quality: Aching Location: Right ankle Worsened by: Weightbearing Relieved by: Rest Narrative Narrative: Patient presents with a right ankle injury that occurred 2 days ago. Patient states she was walking around her car when her ankle twisted. Patient describes her pain as aching. Patient states it is worse with weightbearing and better with rest. Patient denies any paresthesias or weakness. Patient states her pain has been constant for the past 2 days. Patient also admits to some dysuria and urinary frequency. Patient is concerned over possible urinary tract infection. [facility] Medical History Preoperative evaluation to rule out surgical contraindication Osteoporosis Blood glucose elevated Health care maintenance COVID-19 Dermatitis Flu vaccine need Post-menopausal Generalized anxiety disorder Cerebrovascular accident Intracranial hemorrhage HTN (hypertension) Home Medications ?Medication ?Instructions ?Recorded ?Last Taken ?Type multivitamin with folic acid 400 1 tab PO DAILY 03/08/15 Unknown History mcg tablet (Thera) biotin 1 mg capsule 1 mg PO DAILY 11/02/20 Unknown History docusate sodium 100 mg capsule 100 mg PO DAILY 01/06/21 Unknown History (Colace) mecobalamin (vitamin B12) 1,000 1,000 mcg PO DAILY 01/06/21 Unknown History mcg chewable tablet calcium carbonate 600 mg PO DAILY 04/07/21 Unknown History acyclovir 5 % topical cream 1 applic topical .5x/day cold sore 03/22/23 Unknown Rx #5 grams denosumab 60 mg/mL subcutaneous 60 mg subcut [id number] #1 mL 06/13/23 Unknown Rx syringe (Prolia) Prolia 60 mg/mL subcutaneous 60 mg subcut ONCE #1 mL 06/28/23 Unknown Clinic syringe (denosumab) escitalopram oxalate 5 mg tablet 5 mg PO DAILY #90 tabs 07/09/23 Unknown Rx clonidine HCl 0.1 mg tablet 0.1 mg PO 4X/DAY #120 TABLETS 08/21/23 Unknown Rx Allergy/AdvReac Type Severity Reaction Status Date / Time levetiracetam (From [facility]) Allergy Rash Verified 09/17/23 09:48 atorvastatin AdvReac PT UNSURE Verified 09/17/23 09:48 OF REACTION Family History Other Surgical History Hx of eye surgery History of hysterectomy Social History household members: none Smoking Status: Never smoker Electronic Cigarette Use: not used second hand exposure: No alcohol intake: never substance use type: does not use ROS ROS ED Constitutional Constitutional ED: Denies chills or fever(s) Eyes Eyes: Denies blurry vision or change in vision ENT ENT ED: Denies rhinorrhea or sore throat Cardiovascular Cardiovascular: Denies chest pain or palpitations Respiratory/Chest Respiratory/Chest: Denies cough or dyspnea Gastrointestinal Gastrointestinal: Denies nausea or vomiting Genitourinary Genitourinary ED: Reports dysuria and urinary frequency; Denies hematuria Musculoskeletal Musculoskeletal: Denies back pain or neck pain Integumentary Denies abscess or rash Neurologic Neurologic: Denies headache(s) or weakness Allergic/Immunologic Allergic/Immunologic ED: Denies mouth swelling or urticaria EXAM Physical Exam Const Vital Signs: 09/17/23 09:48 09/17/23 11:48 Temperature 96.8 F L Temperature Source Temporal Pulse Rate 61 53 L Respiratory Rate 16 18 Blood Pressure 195/68 H 167/58 H Blood Pressure Mean 110 94 Pulse Ox 98 96 Oxygen Delivery Method Room Air Positive well nourished and well developed General Appearance ED: well developed and NAD HEENT Reports moist mucous membranes Neck supple and no JVD Resp normal respiratory effort and clear to auscultation bilaterally Cardio regular rate and regular rhythm GI non-tender and non-distended Palpation: soft Extremity Extremity Narrative: There is some edema and tenderness over the right ankle. There is no obvious deformity noted. Range of motion is slightly limited in all motions of the right ankle secondary to pain. There is no tenderness over the proximal fibula. There is no tenderness over the fifth metatarsal. Pedal pulses are equal bilaterally. Sensation was intact to light touch in all digits. Capillary refill was less than 2 seconds in all digits. Neuro oriented x3, CN's II-XII intact bilaterally and no sensory deficits noted Sensorium / Orientation: alert Motor Exam: strength 5/5 throughout Psych mental status grossly normal MDM MDM MDM Narrative Medical decision making narrative: Differential diagnosis includes urinary tract infection, right ankle sprain, contusion, and occult fracture. Urinalysis will be obtained to assess for urinary tract infection. X-rays of the right ankle will be obtained to assess for occult fracture. Lab Data Attestation: I reviewed the patient's lab results. Lab results narrative: Urinalysis was reviewed. There is no evidence of urinary tract infection or hematuria. Labs: Laboratory Results - last 24 hr 09/17/23 10:55 Urine Color Yellow Urine Clarity Clear Urine pH 8.0 Ur Specific [place] 1.010 Urine Protein Negative Urine Glucose (UA) Normal Urine Ketones Negative Urine Occult Blood Negative Urine Nitrite Negative Urine Bilirubin Negative Urine Urobilinogen Normal Ur Leukocyte Esterase Negative Urine RBC 0 SEEN Urine WBC 0-5 SEEN Ur Squamous Epith Cells 0-5 SEEN Urine Bacteria RARE Urine Mucus 0 SEEN Radiography Diagnostic Testing: Clinical Impression(s) from Imaging Studies Ankle X-Ray 09/17/23 10:24 IMPRESSION: Soft tissue swelling. Electronically Signed: Markus Taylor MD at 10:36 EDT , X-rays of the right ankle were obtained. There are 3 views. On my independent interpretation, there is no acute fracture or dislocation. There is some mild soft tissue swelling noted. Radiologist also interpreted the x-rays and agrees. Treatment and Re-Evaluation :: Patient was advised of her findings. Patient was given an Aircast. Patient was instructed to ice and elevate her right ankle. Patient was instructed to take Tylenol or ibuprofen as needed for pain. Patient was instructed to follow-up with her primary care physician in 5 to 7 days. Patient understood and was agreeable with the plan. All questions were answered. Discharge Plan Triage Chief Complaint: General Illness ED Provider: Yair Bowers Dx/Rx/DC Orders Clinical Impression: Right ankle sprain, HTN (hypertension) Instructions: ED Ankle Sprain (Adult) Prescriptions: No Action biotin 1 mg capsule 1 mg PO DAILY mecobalamin (vitamin B12) 1,000 mcg tablet,chewable 1,000 mcg PO DAILY docusate sodium [Colace] 100 mg capsule 100 mg PO DAILY calcium carbonate 600 mg calcium (1,500 mg) tablet 600 mg PO DAILY Prolia 60 mg/mL syringe 60 mg subcut ONCE Qty: 1 0RF multivitamin with folic acid [Thera] 1 TABLET tablet 1 tab PO DAILY acyclovir 5 % cream 1 applic topical .5x/day Qty: 5 1RF Prolia 60 mg/mL syringe 60 mg subcut [id number] Qty: 1 2RF escitalopram oxalate 5 mg tablet 5 mg PO DAILY Qty: 90 1RF clonidine HCl 0.1 mg tablet 0.1 mg PO 4X/DAY Qty: 120 0RF Primary Care Provider: Samuel Moreland Referrals: Samuel Moreland MD [Primary Care Provider] - 5-7 Days Print Language: Turkish Disposition Disposition: Home, Self Care
[2023-09-17 10:11] VITALS: BMI 26.5
--- NOTE | 2023-09-17 10:24 | RAD_ITS ---
STUDY: X-RAY - RIGHT ANKLE REASON FOR EXAM: Female, 78 years old. Injury/Pain TECHNIQUE: 3 view(s) of the ankle. COMPARISON: None. FINDINGS: Normal visualized distal tibia and fibula. Normal medial and lateral malleoli. Normal tibiotalar articulation and ankle mortise. Normal visualized talus and calcaneus. The visualized subtalar, talonavicular, calcaneocuboid and tarsal articulations are normal. Soft tissue swelling. RAD/Ankle min 3 Views IMPRESSION: Soft tissue swelling. Electronically Signed: Markus Taylor MD at 10:36 EDT ,
[2023-09-17 11:03] LABS: Mucous, Urine 0 SEEN /hpf (<or=2+); Red Blood Cells-Urine 0 SEEN /hpf (0-5)
[2023-09-17 11:06] LABS: Color, Urine Yellow (Yellow); Glucose, Dipstick Normal (Normal); Ketone-Dipstick Negative (Negative); Leukocyte Esterase-Dipstick Negative /ul (Negative); Nitrite-Dipstick Negative (Negative); Occult Blood-Urine Negative /ul (Negative); Protein-Dipstick Negative (Negative); Urine Bilirubin Dipstick Negative (Negative); Urine Clarity Clear (Clear); Urine Urobilinogen Normal (Normal)
[2023-09-17 11:13] LABS: Squamous Epithelial Cells - UA 0-5 SEEN /hpf (5-10); White Blood Cells 0-5 SEEN /hpf (0-5)
[2023-09-17 11:14] LABS: Bacteria RARE /hpf (None Seen)
[2023-09-17 11:48] VITALS: BP 167/58; PULSE 53; RESP 18; O2SAT 96
[2023-09-17 13:00] VITALS: BP 155/62; PULSE 59; RESP 16; O2SAT 98
[2023-09-17 13:12] VITALS: BP 155/62; PULSE 59; RESP 16; TEMP 36.4; O2SAT 98
== END 2023-09-17 13:13 | disposition home or self-care (01) ==
PROVIDERS: Emergency Provider Emergency Medicine; PCP Internal Medicine; Visit Provider Emergency Medicine
DX: S93.401A Sprain of unspecified ligament of right ankle, initial encounter (principal); R35.0 Frequency of micturition; I10 Essential (primary) hypertension; Z86.73 Personal history of transient ischemic attack (TIA), and cerebral infarction without residual deficits; Z86.16 Personal history of COVID-19; R30.0 Dysuria; X50.1XXA Overexertion from prolonged static or awkward postures, initial encounter; Z90.710 Acquired absence of both cervix and uterus
CPT/HCPCS: 73610; 81001; 99284

== ENCOUNTER → 2023-12-27 | Outpatient (CLI) | payer MEDICARE, SELFPAY ==
[2023-12-27 15:26] LABS: Vitamin D,25 Hydroxy 49.1 ng/mL
[2023-12-27 15:28] LABS: Hemoglobin A1c 5.8 % (3.8-5.6)
[2023-12-27 15:29] LABS: AST(SGOT) 20 U/L (15-37); Alanine Aminotransfer ALT/SGPT 16 U/L (13-56); Albumin, Serum 3.7 g/dL (3.2-5.0); Alkaline Phosphatase 65 U/L (45-117); Anion Gap 4 (5-15); BUN 21 mg/dL (7-18); BUN/Creat Ratio 21.1 RATIO (10-20); Calcium,Total 9.3 mg/dL (8.5-10.1); Chloride 105 mmol/L (98-107); EST Glomerular Filtration Rate 57 mL/min (>60); Est Glom Filt Rate - Afr Amer 69 mL/min (>60); Globulin 3.8 g/dL (2.2-4.2); Glucose 103 mg/dL (74-106); Potassium 4.8 mmol/L (3.5-5.1); Protein, Total 7.5 g/dL (6.4-8.2); Sodium Level 136 mmol/L (136-145)
== END | disposition home or self-care (01) ==
LOC: BIMLAB 13:51
PROVIDERS: PCP Internal Medicine; Referring Provider Internal Medicine; Visit Provider Internal Medicine
DX: M81.0 Age-related osteoporosis without current pathological fracture (principal); R73.09 Other abnormal glucose
CPT/HCPCS: 36415; 80053; 82306; 83036

== ENCOUNTER → 2024-07-10 | Outpatient (CLI) | payer MEDICARE, SELFPAY ==
[2024-07-10 16:15] LABS: Absolute Lymphocyte Count 1.63 X10^3/uL (0.83-4.51); Absolute Neutrophil Count 4.5 X10^3/uL (2.0-7.7); Basophil# 0.02 X10^3/uL; Basophil% 0.3 % (0-1); Eosinophil# 0.03 X10^3/uL; Eosinophils% 0.5 % (0-5); Hemoglobin 11.8 g/dL (12.0-15.0); Lymphocyte # 1.63 X10^3/ul (0.83-4.51); Lymphocyte % 25.2 % (19-41); Mean Corp Hgb Conc 31.9 g/dL (32-36); Mean Corpuscular Hgb 30.1 pg (27.0-32.0); Mean Corpuscular Volume 94.4 fL (81-99); Monocyte# 0.29 X10^3/uL; Monocyte% 4.5 % (0-10); NRBC Flagged by Analyzer 0 % (0-5); Neutrophil # 4.48 X10^3/uL (2.7-7.7); Neutrophil % 69.2 % (47-70); Platelet Count 236 K/mm3 (150-450); RBC Distribution Width CV 13.1 % (11.6-14.6); RBC Distribution Width SD 44.8 fl (35.1-43.9); Red Blood Count 3.92 M/mm3 (4.2-5.4); White Blood Count 6.5 K/mm3 (4.4-11.0)
[2024-07-10 17:30] LABS: AST(SGOT) 23 U/L (<=31); Alanine Aminotransfer ALT/SGPT 13 U/L (<=34); Alkaline Phosphatase 75 U/L (35-104); Calcium,Total 9.7 mg/dL (7.6-11.0); Carbon Dioxide 23.7 mmol/L (21.0-32.0); Creatinine, Serum 1.01 mg/dL (0.70-1.20); EST Glomerular Filtration Rate 56 (>60); Total Bilirubin 0.32 mg/dL (0.00-1.30)
[2024-07-10 18:10] LABS: ALB/GLOB Ratio 1.4 RATIO (0.9-2.4); Anion Gap 13 (5-15); BUN 21 mg/dL (4-19); BUN/Creat Ratio 21.1 RATIO (10-20); Chloride 100 mmol/L (98-108); Cholesterol 188 mg/dL (<=200); Glucose 163 mg/dL (70-99); High Density Lipoprotein 46 mg/dL; Low Density Lipoprotein Calc. 109 mg/dL; Potassium 4.4 mmol/L (3.3-5.1); Sodium Level 137 mmol/L (133-145); Triglycerides 161 mg/dL; Very Low Density Lipoprotein 32 mg/dL (5-40); cholesterol:hdl ratio screen 4.05
[2024-07-11 09:38] LABS: Hemoglobin A1c 6.1 % (<=5.6)
[2024-07-11 09:42] LABS: Ferritin 370 ng/mL (22-378); Iron 38 ug/dL (50-170); Iron Binding Capacity,Unsat 190 ug/dL (228-428)
== END | disposition home or self-care (01) ==
LOC: BIMLAB 13:42
PROVIDERS: PCP Internal Medicine; Visit Provider Internal Medicine
DX: I10 Essential (primary) hypertension (principal); D64.9 Anemia, unspecified; R73.9 Hyperglycemia, unspecified
CPT/HCPCS: 36415; 80053; 80061; 82728; 83036; 83540; 83550; 85025